=== PATIENT | male | born 1985 | race Caucasian/White ===

== ENCOUNTER 2019-04-08 11:08 | Inpatient (IN) | payer MEDICAID, OTHER ==
[2019-04-08] VITALS (8 sets, daily range): BP systolic 89–101; BP diastolic 51–60; O2SAT 100
[2019-04-08] MEDS: PANTOPRAZOLE 40MG INJ (PROTONIX) (C9113) IV SCH (09:00)
[~2019-04-08 11:08] MED LIST: AMIT25TA PO; CLOB-25 EX; CLON1TAB8 PO; CYCL10TA PO; GABA-845 PO; MOBI4TAB PO; NICO14DI3 TD; OMEP40CA2 PO; PERC5TAB8 PO; SERO1TAB OR; SUBO8MIS SL; TOPA50TA8 PO; WELLTAB40 PO; ZANA4CAP PO
[2019-04-08] MEDS ORDERED: NS 1,000 ML IV SCH (11:18)
[2019-04-08] MEDS ORDERED: NS 1,000 ML IV ONE ×2 (11:30)
[2019-04-08 11:36] LABS: ABG BASE EXCESS -1.2 (-2.0-2.0); ABG HCO3 22.4 MEQ/L (22.0-26.0); ABG O2 SATURATION 99.3 % (95.0-99.0); ABG PARTIAL PRESSURE CO2 34.3 mmHg (35.0-45.0); ABG PARTIAL PRESSURE O2 174.3 mmHg (75.0-100.0); ABG STANDARD HCO3 23.5 MEQ/L (22.0-26.0); ABG TOTAL CO2 23.5 MEQ/L (22.0-29.0); ABG pH (ARTERIAL) 7.433 UNITS (7.350-7.450)
[2019-04-08 11:45] LABS: BASO # 0.1 10^3/uL (0.0-0.2); BASO % 0.4 % (0.0-1.0); EOS # 0.1 10^3/uL (0.0-0.50); EOS % 0.5 % (0.0-3.0); HEMATOCRIT 38.3 % (42.0-52.0); HEMOGLOBIN 13.3 g/dl (13.5-17.5); LYMPH # 1.6 10^3/uL (1.5-4.5); LYMPH % 9.4 % (24.0-44.0); MEAN CORPUSCULAR HEMOGLOBIN 31.3 pg (27.0-33.0); MEAN CORPUSCULAR HGB CONC 34.7 g/dl (32.0-36.5); MEAN CORPUSCULAR VOLUME 90.1 fl (80.0-96.0); MONO # 1.4 10^3/uL (0.0-0.8); MONO % 8.3 % (0.0-5.0); NEUTROPHILS # 13.9 10^3/uL (1.8-7.7); PLATELET COUNT, AUTOMATED 312 10^3/uL (150-450); RED BLOOD COUNT 4.25 10^6/uL (4.30-6.10); WHITE BLOOD COUNT 17.1 10^3/uL (4.0-10.0)
[2019-04-08] MEDS ORDERED: NALOXONE INJ 2 MG/2 ML SYRINGE (J2310) As Ordered ONE (11:47)
[2019-04-08] MEDS ORDERED: PROPOFOL 1,000 MG/100 ML VIAL As Ordered ONE (12:00)
--- NOTE | 2019-04-08 12:00 | REP ---
CHEST, SINGLE VIEW: There is no evidence of acute infiltrate. No pleural effusion is seen. The heart is normal in size. The mediastinal silhouette is unremarkable. The visualized osseous structures are intact. IMPRESSION: No acute pulmonary disease. Electronically Signed by Moy Newell MD 04/08/2019 04:21 P
[2019-04-08] MEDS ORDERED: PROPOFOL 200 MG/20 ML VIAL IV ONE (12:15)
[2019-04-08 12:21] LABS: ACETAMINOPHEN LEVEL < 2.0 UG/ML (10.0-30.0); ALT/SGPT 58 U/L (12-78); BILIRUBIN,DIRECT 0.4 MG/DL (0.0-0.2); BILIRUBIN,TOTAL 1.3 MG/DL (0.2-1.0); BLOOD UREA NITROGEN 22 MG/DL (7-18); CALCIUM LEVEL 9.2 MG/DL (8.5-10.1); CARBON DIOXIDE LEVEL 26 MEQ/L (21-32); CHLORIDE LEVEL 103 MEQ/L (98-107); CPK CREATINE PHOSPHOKINASE 596 U/L (39-308); ETHYL ALCOHOL (ETHANOL) < 0.003 % (0.000-0.010); GLOMERULAR FILTRATION RATE > 60.0 (>60); GLUCOSE, FASTING 88 MG/DL (70-100); POTASSIUM SERUM 3.6 MEQ/L (3.5-5.1); SALICYLATE LEVEL < 1.7 MG/DL (5.0-30.0); SODIUM LEVEL 138 MEQ/L (136-145); TOTAL PROTEIN 7.6 GM/DL (6.4-8.2)
[2019-04-08 12:25] LABS: AMPHETAMINES LEVEL URINE POSITIVE (NEGATIVE); BARBITURATES URINE NEGATIVE (NEGATIVE); BENZODIAZEPINES URINE POSITIVE (NEGATIVE); CANNABINOIDS URINE NEGATIVE (NEGATIVE); COCAINE METABOLITE URINE NEGATIVE (NEGATIVE); METHADONE URINE NEGATIVE (NEGATIVE); OPIATES URINE NEGATIVE (NEGATIVE); PHENCYCLIDINE URINE NEGATIVE (NEGATIVE)
--- NOTE | 2019-04-08 12:25 | REP ---
Portable chest x-ray: Single view. 12:08 p.m. film History: Post intubation. Comparison study: April 08, 2019 11:26 a.m. film. Findings: An endotracheal tube has been passed into the origin of the right mainstem bronchus. This should be withdrawn approximately 4 cm. The lungs are symmetrically aerated and clear. Pleural angles are sharp. Heart is not enlarged. No bony abnormalities seen. Impression: Right mainstem bronchial intubation. Endotracheal tube should be withdrawn approximately 4 cm. Electronically Signed by Alexander Wheat MD 04/08/2019 12:16 P
[2019-04-08 12:26] LABS: OSMOLALITY SERUM 294 MOSM/KG (275-295)
--- NOTE | 2019-04-08 12:55 | REP ---
Head CT without contrast: History: Altered mental status. Comparison study: Comparison CT study March 14, 2016. CT findings: Bone window settings demonstrate an intact bony calvarium. There is no evidence of skull fracture or incidental bony calvarial lesion. The visualized paranasal sinuses appear clear. No intraorbital abnormality is seen. On soft tissue window setting images; the lateral, third, and fourth ventricles are normal in size and position. Newell-white differentiation pattern is normal above and below the tentorium. There are is no evidence of intracranial hemorrhage. No mass, edema, infarction, or midline shift is seen. No extra-axial fluid collection is appreciated. Impression: Negative noncontrast head CT. Electronically Signed by Alexander Wheat MD 04/08/2019 12:46 P
[2019-04-08] MEDS: PROPOFOL 1,000 MG in APPROPRIATE DILUENT 1 EA IV SCH ×3 (13:01→18:21)
--- NOTE | 2019-04-08 13:03 | REP ---
Oral chest x-ray: Single view. 12:44 p.m. History: Tube placement. Comparison study is from 12:08 p.m. on this date. Findings: The endotracheal tube has been withdrawn slightly and now terminates at the level of the tiarra. Lungs remain symmetrically aerated. Pleural angles are sharp. EKG electrodes are seen. No focal infiltrate. Impression: The tip of the endotracheal tube is now at the tiarra. Electronically Signed by Alexander Wheat MD 04/08/2019 12:54 P
[2019-04-08] MEDS ORDERED: SUCCINYLCHOLINE INJ 200 MG/10 ML VIAL (J0330) IV STA (13:11)
[2019-04-08] MEDS ORDERED: XANA2TAB2 PO (13:28)
[2019-04-08] MEDS ORDERED: CLOB05OI TOP (13:28)
[2019-04-08] MEDS ORDERED: SERO200T PO (13:28)
[2019-04-08] MEDS ORDERED: SUBO8MIS SL (13:28)
[2019-04-08] MEDS ORDERED: MIDAZOLAM INJ 2 MG/2 ML VIAL (J2250) IV PRN (13:45)
[2019-04-08] MEDS ORDERED: MORPHINE 4 MG/ML 1ML VIAL/SYRINGE (J2270) IV PRN (13:45)
[2019-04-08] MEDS: KCL 20MEQ IN D5/0.45NS 1000ML 1,000 ML IV SCH ×2 (14:14→21:05)
[2019-04-08] MEDS: HEPARIN SOD (PORCINE) 5000 UNITS/ML VIAL SC SCH ×2 (14:16→21:05)
[2019-04-08] MEDS ORDERED: SUCCINYLCHOLINE 100 MG/5 ML SYRINGE (J0330) ONE (15:09)
--- NOTE | 2019-04-08 18:14 | HPE ---
DATE OF ADMISSION: 04/08/2019 ATTENDING PHYSICIAN: Dr. Boo. REASON FOR ADMISSION: Suspected drug overdose with respiratory failure. HISTORY OF PRESENT ILLNESS: Patient is a 33-year-old male who presents into the emergency department via [facility] ([facility]) for a suspected overdose. My first contact with the patient was in the emergency department after the patient had been sedated and intubated. As such, the majority of the history of present illness (HPI) does come from the medical record and EMS run report. EMS was called to the patient's home after a family member stated the patient took an unknown amount of pills, thought to be anywhere from 10 to 1/2 a bottle worth of Seroquel, with possible Suboxone and Xanax and perhaps Klonopin in an attempt to harm himself. Upon arrival, EMS found the patient to be conscious and responsive to verbal stimuli. They did note some dried blood from multiple superficial lacerations on the patient's head. Patient's family member reported that the patient did vomit. EMS also stated that an unknown quantity of pills were found dissolved in the toilet near where the patient was found. Patient was subsequently transported to the emergency department where, upon arrival, patient was found to have a pulse of 152, a respiratory rate of 16, oxygen saturation of 95 on room air. Given patient's respiratory decline, decision was made to intubate the patient and place him on a ventilator. Shank Tapper was contacted for intensive care unit (ICU) admission and further management. PAST MEDICAL HISTORY: Past medical history obtained from the medical record given that patient remains sedated. Patient does have a history of headaches. No known cardiac, respiratory, gastrointestinal (GI), genitourinary (), endocrine problems. Medical record also indicates patient does have a history of chronic back pain after a fall sustained on 03/21/2019. Patient also has a history of hepatitis C secondary to intravenous (IV) heroin use. Rheumatologic disease: Patient does have a history of psoriatic arthritis. SURGICAL HISTORY: 1. Tonsillectomy. 2. Adenoidectomy. PSYCHIATRIC HISTORY: Positive for schizophrenia, anxiety, depression, oppositional defiant disorder. Patient does have a history of major depression/bipolar disorder. He uses to see Dr. Carrasco. SOCIAL HISTORY: Social history unable to be obtained given patient's current condition. Medical record indicates that the patient is a current everyday smoker and has been so for a number of years. History of IV heroin use as mentioned above. FAMILY HISTORY: Unable to be obtained given patient's current condition. VITAL SIGNS: Temperature is 99.1 degrees Fahrenheit, pulse is 90 beats per minute, respiratory rate is 14, blood pressure is 102/52, with a mean arterial pressure of 69. Pulse oximetry: Patient is saturating at 98% on a ventilator with 40 of FiO2. PHYSICAL EXAMINATION: GENERAL: Patient is a well-developed male lying on emergency room stretcher. He is intubated with an orogastric (OG) tube in place. Propofol drip is running for sedation. HEENT: There are numerous small superficial lacerations on the patient's right scalp in the parietal region. None of these appear to be deep or require further intervention at this time. Patient does not have any evidence of facial injury. Pupils are constricted equally bilaterally. His sclerae are clear. NECK: Patient's trachea appears midline. CARDIAC: Regular rate and rhythm. Normal S1, S2 with no apparent murmurs. PULMONARY: Lungs are clear bilaterally. Does demonstrate symmetric expansion. No adventitial breath sounds. EXTREMITIES: Patient does have palpable 2+ radial and posterior tibial pulses bilaterally. Some scars are noted on the patient's left antecubital fossa. Tattoos also present on patient's extremities. He does not have any lower extremity edema or obvious injury. ABDOMEN: Soft, nontender, nondistended. Bowel sounds are present throughout. No hepatosplenomegaly or masses appreciated. NEUROLOGIC: Patient is sedated at this time. LABORATORY STUDIES: Hematology: Patient does have an elevated white count of 17.1, an hemoglobin and hematocrit (H and H) of 13.3/38.3, platelets are 312. Chemistry: Sodium is 138, potassium is 3.6, chloride at 103, carbon dioxide 26, BUN of 22, creatinine of 1.0, calcium of 9.2. Patient has a slightly elevated AST of 48 and an ALT of 58. Total creatinine kinase is elevated at 596. Patient's blood gas demonstrates a pH of 7.43, pCO2 of 34.3, pO2 of 174.3 and a bicarbonate of 22.4. TOXICOLOGY: Patient is positive for urine amphetamines and benzodiazepines. IMAGING STUDIES: Chest x-ray performed upon presentation does not demonstrate any acute pulmonary disease. Following intubation, portable chest x-ray did demonstrate that the patient did have a right main stem bronchial intubation. The endotracheal tube was withdrawn and repeat x-ray did confirm endotracheal tube placement at the tiarra. Head CT was also ordered to rule out any trauma and was negative for any acute abnormalities. IMPRESSION: 1. Respiratory failure secondary to overdose of unknown quantity of medication. 2. Question of suicide attempt. 3. Superficial scalp lacerations on the right. PLAN: The patient will be admitted to the ICU and remains under supportive ventilation while the unknown medications in patient's system wear off. He will continue to be monitored for any further sequelae of his overdose. 2. Cardiac: Continue to monitor patient's rhythm with particular attention to development of QT prolongation. 3. Respiratory: Patient is to remain ventilated with propofol sedation. Versed will be given as needed. The usual ventilation care bundle will also be ordered. Ventilation mode of PRVC at a rate of 16, tidal volume of 380, FiO2 of 50, and PEEP of 5. Plan for daily sedation vacations. Repeat arterial blood gas (ABG) to be performed at 1800 and daily thereafter. Daily chest x-ray as well will be performed. 4. Nephrology: Continue to monitor strict intake and output (I and O). Patient will continue with his Hahn until extubated. Patient is currently receiving IV fluids with supplemental potassium. D5 half normal saline at 150 mL per hour. Daily critical care profile labs will be ordered. 5. GI: Patient will be given GI prophylaxis with 40 mg of Protonix. Patient is nothing by mouth, does have an OG tube, which will be place on low intermittent suction. 6. Hematology: Patient is given heparin for deep venous thrombosis (DVT) prophylaxis. 7. Neurological: Patient remains sedated using propofol drip. He will be given 2 mg of IV morphine as needed for pain. 8. Psychiatric: Question of suspected suicide attempt. Plan for psychiatric consult following medical stabilization. CODE STATUS: Patient is a FULL CODE. I was physically present for the entire encounter. Independent exam performer. I agree with the above outlined exam and plan. [facility] HOSPITALNatalia
[2019-04-08 18:21] LABS: ABG BASE EXCESS -1.2 (-2.0-2.0); ABG HCO3 23.7 MEQ/L (22.0-26.0); ABG O2 SATURATION 99.1 % (95.0-99.0); ABG PARTIAL PRESSURE CO2 40.5 mmHg (35.0-45.0); ABG STANDARD HCO3 23.5 MEQ/L (22.0-26.0); ABG pH (ARTERIAL) 7.386 UNITS (7.350-7.450)
[2019-04-08] MEDS ORDERED: cefTRIAXone SOD 1 GM in D5W MINI-BAG PLUS 50 ML IV SCH (19:00)
[2019-04-08] MEDS: IPRATROPIUM 0.5MG/ALBUTEROL 2.5MG INH SOL UD 3ML (DUONEB)(J7620) NEB SCH (19:26)
[2019-04-08] MEDS: CHLORHEXIDINE GLUCONATE 0.12 % 15ML UDC (PERIDEX ORAL RINSE) MT SCH (21:04)
[2019-04-09] VITALS (14 sets, daily range): BP systolic 93–123; BP diastolic 53–73; O2SAT 100
[2019-04-09] MEDS: IPRATROPIUM 0.5MG/ALBUTEROL 2.5MG INH SOL UD 3ML (DUONEB)(J7620) NEB SCH ×6 (00:10→20:09)
[2019-04-09] MEDS: PROPOFOL 1,000 MG in APPROPRIATE DILUENT 1 EA IV SCH (03:59)
[2019-04-09] MEDS: KCL 20MEQ IN D5/0.45NS 1000ML 1,000 ML IV SCH ×4 (03:59→23:40)
[2019-04-09 05:13] LABS: BASO % 0.3 % (0.0-1.0); EOS # 0.2 10^3/uL (0.0-0.50); EOS % 2.1 % (0.0-3.0); HEMATOCRIT 34.8 % (42.0-52.0); HEMOGLOBIN 11.5 g/dl (13.5-17.5); LYMPH # 1.4 10^3/uL (1.5-4.5); LYMPH % 14.3 % (24.0-44.0); MEAN CORPUSCULAR VOLUME 93.8 fl (80.0-96.0); MONO # 1.1 10^3/uL (0.0-0.8); MONO % 11.2 % (0.0-5.0); NEUTROPHILS % 71.8 % (36.0-66.0); PLATELET COUNT, AUTOMATED 253 10^3/uL (150-450); RED BLOOD COUNT 3.71 10^6/uL (4.30-6.10); WHITE BLOOD COUNT 9.7 10^3/uL (4.0-10.0)
[2019-04-09] MEDS: HEPARIN SOD (PORCINE) 5000 UNITS/ML VIAL SC SCH ×3 (05:16→14:10)
[2019-04-09 05:37] LABS: ALBUMIN 3.1 GM/DL (3.2-5.2); ALT/SGPT 46 U/L (12-78); BILIRUBIN,TOTAL 0.7 MG/DL (0.2-1.0); BLOOD UREA NITROGEN 12 MG/DL (7-18); CALCIUM LEVEL 7.6 MG/DL (8.5-10.1); CARBON DIOXIDE LEVEL 26 MEQ/L (21-32); CHLORIDE LEVEL 112 MEQ/L (98-107); CHOLESTEROL LEVEL 118 MG/DL (< 200); CPK CREATINE PHOSPHOKINASE 225 U/L (39-308); CREATININE FOR GFR 0.91 MG/DL (0.70-1.30); GLOMERULAR FILTRATION RATE > 60.0 (>60); GLUCOSE, FASTING 115 MG/DL (70-100); LDH LACTATE DEHYDROGENASE 77 U/L (87-241); PHOSPHORUS LEVEL 3.3 MG/DL (2.5-4.9); POTASSIUM SERUM 3.8 MEQ/L (3.5-5.1); SODIUM LEVEL 142 MEQ/L (136-145); TOTAL PROTEIN 6.3 GM/DL (6.4-8.2); TRIGLYCERIDES LEVEL 30 MG/DL (<150)
[2019-04-09 05:46] LABS: ABG BASE EXCESS -0.8 (-2.0-2.0); ABG HCO3 24.4 MEQ/L (22.0-26.0); ABG O2 SATURATION 98.1 % (95.0-99.0); ABG PARTIAL PRESSURE CO2 42.6 mmHg (35.0-45.0); ABG PARTIAL PRESSURE O2 107.2 mmHg (75.0-100.0); ABG STANDARD HCO3 23.8 MEQ/L (22.0-26.0); ABG TOTAL CO2 25.7 MEQ/L (22.0-29.0); ABG pH (ARTERIAL) 7.376 UNITS (7.350-7.450)
--- NOTE | 2019-04-09 05:49 | ECGEPIP ---
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
--- NOTE | 2019-04-09 05:54 | ECGEPIP ---
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
[2019-04-09] MEDS: CHLORHEXIDINE GLUCONATE 0.12 % 15ML UDC (PERIDEX ORAL RINSE) MT SCH (09:03)
[2019-04-09] MEDS: PANTOPRAZOLE 40MG INJ (PROTONIX) (C9113) IV SCH (09:03)
--- NOTE | 2019-04-09 09:37 | REP ---
CHEST, PORTABLE: AP portable view of the chest was performed and compared to prior study of 04/08/2019. Endotracheal tube is seen with the tip between the leve of the clavicles and the tiarra. Nasogastric tube is seen. The sideport appears to be in the region of the gastroesophageal junction with the distal tip in the stomach. The lungs appear unchanged with no infiltrate. The heart and mediastinum are unremarkable and unchanged. Electronically Signed by Moy Newell MD 04/09/2019 04:28 P
--- NOTE | 2019-04-09 10:12 | CCN ---
DATE: 04/09/2019 START TIME: 905 STOP TIME: 953 I again attended Julio C Meza here in the intensive care unit (ICU). The patient has been examined and his chart is reviewed. During the night, he was able to tolerate a wean in his propofol but then became somewhat agitated. He is on sedation vacation this morning, but is still quite sedate. Maximum temperature (t-max) overnight 99.4, blood pressure 90 to the low 100s, heart rate generally in the 70s to 80s with a sinus mechanism, respiratory rate 16 to 18 without accessory muscle use. Input and output midnight to midnight 336 mL in with 1975 mL out. Most recent laboratories showed a white blood cell count 9.7, hemoglobin 11.5, platelet count 253,000, 71.8% segmented neutrophils, no bands. Sodium 142, potassium 3.8, chloride 102, CO2 of 26, BUN 12, creatinine 0.91, glucose 115. Most recent arterial blood gas done on a pressure-like regulated volume control (PRVC) , rate is 16, tidal volume 400, PEEP of 5, FiO2 of 30% has a pH of 7.376, PCO2 of 42.6, PO2 of 107.2. Chest x-ray done this morning shows no evidence of infiltrate. Lines and tubes in good position. No pneumothorax. PHYSICAL EXAMINATION: He is sedate. Pupils do react, sclerae clear. There is mild intermittent disconjugate gaze that does clear. Membranes are moist. Trachea is in the midline. Chest is equally bilaterally expanded. Percussion is normal. Tactile fremitus palpable. No focal wheeze, rhonchus, rales. Cardiac exam is regular with no gallop. Peripheral pulses palpable. No edema. No obvious murmur. Abdomen is soft with active bowel sounds. No convincing organomegaly or masses. Extremities are without cyanosis or clubbing. Neurologically, he is sedate but is beginning to at least flutter his eyes to verbal and noxious stimuli. Most pressing problems requiring my presence at the bedside are: 1. Respiratory failure secondary to polypharmacy drug overdose. 2. Suicidal gesture. 3. Long-standing history of substance abuse. At this point, we will lighten his sedation. My hope is that we will be able to achieve extubation, but again we are unaware of what actual substances he took, whether they are sustained release or not. When he is finally able to be extubated, clearly he will need formal psychiatry evaluation since all indications point to this being a suicidal gesture. We will continue ulcer and deep vein thrombosis (DVT) prophylaxis. If he is not able to be extubated today then we will begin enteral feeds. No evidence at this point of any other progressive issues. He was empirically placed on antibiotics yesterday for a marginal white blood cell count and his history of vomiting. We will reassess this on a day by day basis to see if we can discontinue it his antimicrobials, we would certainly like to do that at the earliest convenience. In view of the above, he does remain critically ill. I left the bedside at 0954 hours. 48 minutes of critical care was delivered at the bedside, not including procedures. CASSIA
--- NOTE | 2019-04-09 18:07 | IPNPDOC ---
Subjective Date Seen The patient was seen on 04/09/19. Subjective Chief Complaint/HPI The patient was seen in the ICU. He is arousable, easily waken up. However, he is currently very tired,and he has difficulty having a conversation with me. He was extubated today. He denies pain. General: Reports: ROS Unobtainable Objective Physical Examination General Exam: Positive: Alert ENT Exam: Positive: Atraumatic, Mucous membr. moist/pink Neck Exam: Positive: Supple Chest Exam: Positive: Clear to auscultation, Normal air movement Heart Exam: Positive: Rate Normal Telemetry: Positive: No significant arrhythmia Abdomen Exam: Positive: Normal bowel sounds Extremity Exam: Positive: Other (no edema) Skin Exam: Positive: Nl turgor and temperature Neuro Exam: Positive: Normal Speech Psych Exam: Positive: Mood NL Assessment /Plan Problems (1) Drug overdose Status: Acute (2) Respiratory failure requiring intubation Problem Text: # Not able to protect airway - The patient was not able to protect the airway, and he was intubated. He was extubated without any complications today. Currently, the patient is awake, but looking very tired. He denies pain. - Will continue the non-rebreather mask to help breathing. # Medication overdose, suicidal ideation? - UTox shows amphetamine and benzo, not clear what was overdosed. - The patient was just extubated today. Will be seen by inpatient psych tomorrow. - Continue IV hydration. # Rhabdomyolitis - He had an elevated CK level initially. Improving on IV hydration. - Continue IV hydration. # DVT ppx - heparin Plan/VTE VTE Prophylaxis Ordered?: Yes VS, I&O, 24H, [facility] Vital Signs/I&O Vital Signs Date Time Temp Pulse Resp B/P (MAP) Pulse Ox O2 Delivery O2 Flow Rate FiO2 04/09/19 16:00 98.6 114 18 121/65 (83) 94 04/09/19 14:00 10.0 40 04/08/19 18:21 Ventilator I&O- Last 24 Hours up to 6 AM 04/09/19 06:00 Intake Total 4236 ml Output Total 2450 ml Balance 1786 ml Laboratory Data 24H LABS Laboratory Tests 2 04/08/19 18:02: Blood Gas Bicarbonate Standard 23.5, Arterial Blood pH 7.386, Arterial Blood Partial Pressure CO2 40.5, Arterial Blood Partial Pressure O2 151.0H, Arterial Blood Total CO2 25.0, Arterial Blood HCO3 23.7, Arterial Blood Base Excess -1.2, Arterial Blood Oxygen Saturation 99.1H 04/09/19 04:38: Immature Granulocyte % (Auto) 0.3, White Blood Count 9.7, Red Blood Count 3.71L, Hemoglobin 11.5L, Hematocrit 34.8L, Mean Corpuscular Volume 93.8, Mean Corpuscular Hemoglobin 31.0, Mean Corpuscular Hemoglobin Concent 33.0, Red Cell Distribution Width 12.8, Platelet Count 253, Neutrophils (%) (Auto) 71.8H, Lymphocytes (%) (Auto) 14.3L, Monocytes (%) (Auto) 11.2H, Eosinophils (%) (Auto) 2.1, Basophils (%) (Auto) 0.3, Neutrophils # (Auto) 7.0, Lymphocytes # (Auto) 1.4L, Monocytes # (Auto) 1.1H, Eosinophils # (Auto) 0.2, Basophils # (Auto) 0.0, Nucleated Red Blood Cells % (auto) 0.0, Anion Gap 4L, Glomerular Filtration Rate > 60.0, Blood Urea Nitrogen 12, Creatinine 0.91, Sodium Level 142, Potassium Level 3.8, Chloride Level 112H, Carbon Dioxide Level 26, Calcium Level 7.6#L, Phosphorus Level 3.3, Aspartate Amino Transf (AST/SGOT) 35, Alanine Aminotransferase (ALT/SGPT) 46, Lactate Dehydrogenase 77L, Total Creatine Kinase 225, Alkaline Phosphatase 71, Total Bilirubin 0.7, Triglycerides Level 30, Cholesterol Level 118, Total Protein 6.3L, Albumin 3.1#L, Albumin/Globulin Ratio 0.97L 04/09/19 05:33: Blood Gas Bicarbonate Standard 23.8, Arterial Blood pH 7.376, Arterial Blood Partial Pressure CO2 42.6, Arterial Blood Partial Pressure O2 107.2H, Arterial Blood Total CO2 25.7, Arterial Blood HCO3 24.4, Arterial Blood Base Excess -0.8, Arterial Blood Oxygen Saturation 98.1 CBC/BMP Laboratory Tests 04/09/19 04:38 Red Blood Count 3.71 L, Mean Corpuscular Volume 93.8, Mean Corpuscular Hemoglobin 31.0, Mean Corpuscular Hemoglobin Concent 33.0, Red Cell Distribution Width 12.8, Neutrophils (%) (Auto) 71.8 H, Lymphocytes (%) (Auto) 14.3 L, Monocytes (%) (Auto) 11.2 H, Eosinophils (%) (Auto) 2.1, Basophils (%) (Auto) 0.3, Neutrophils # (Auto) 7.0, Lymphocytes # (Auto) 1.4 L, Monocytes # (Auto) 1.1 H, Eosinophils # (Auto) 0.2, Basophils # (Auto) 0.0, Calcium Level 7.6 #L, Phosphorus Level 3.3, Aspartate Amino Transf (AST/SGOT) 35, Alanine Aminotransferase (ALT/SGPT) 46, Lactate Dehydrogenase 77 L, Total Creatine Kinase 225, Alkaline Phosphatase 71, Total Bilirubin 0.7, Triglycerides Level 30, Cholesterol Level 118, Total Protein 6.3 L, Albumin 3.1 #L ISHA MAURICIO MD Apr 09, 2019 18:07
[2019-04-09] MEDS: ACETAMINOPHEN 500 MG TAB PO PRN (20:06)
[2019-04-10] VITALS: BP 105/65
[2019-04-10 04:00] VITALS: BP 105/70
[2019-04-10] MEDS: IPRATROPIUM 0.5MG/ALBUTEROL 2.5MG INH SOL UD 3ML (DUONEB)(J7620) NEB SCH ×5 (04:00→16:00)
[2019-04-10] MEDS: KCL 20MEQ IN D5/0.45NS 1000ML 1,000 ML IV SCH (05:25)
[2019-04-10] MEDS: HEPARIN SOD (PORCINE) 5000 UNITS/ML VIAL SC SCH ×2 (05:26→13:44)
[2019-04-10 05:32] LABS: BASO % 0.4 % (0.0-1.0); EOS # 0.2 10^3/uL (0.0-0.50); EOS % 2.1 % (0.0-3.0); HEMATOCRIT 37.8 % (42.0-52.0); HEMOGLOBIN 12.3 g/dl (13.5-17.5); LYMPH # 1.8 10^3/uL (1.5-4.5); LYMPH % 17.4 % (24.0-44.0); MEAN CORPUSCULAR HEMOGLOBIN 30.5 pg (27.0-33.0); MEAN CORPUSCULAR HGB CONC 32.5 g/dl (32.0-36.5); MEAN CORPUSCULAR VOLUME 93.8 fl (80.0-96.0); MONO # 1.3 10^3/uL (0.0-0.8); MONO % 12.5 % (0.0-5.0); NEUTROPHILS # 6.8 10^3/uL (1.8-7.7); NEUTROPHILS % 67.3 % (36.0-66.0); PLATELET COUNT, AUTOMATED 249 10^3/uL (150-450); RED BLOOD COUNT 4.03 10^6/uL (4.30-6.10); WHITE BLOOD COUNT 10.1 10^3/uL (4.0-10.0)
[2019-04-10 05:58] LABS: ALBUMIN 2.8 GM/DL (3.2-5.2); ALT/SGPT 42 U/L (12-78); BILIRUBIN,TOTAL 0.7 MG/DL (0.2-1.0); BLOOD UREA NITROGEN 9 MG/DL (7-18); CALCIUM LEVEL 8.1 MG/DL (8.5-10.1); CARBON DIOXIDE LEVEL 27 MEQ/L (21-32); CHLORIDE LEVEL 110 MEQ/L (98-107); CHOLESTEROL LEVEL 130 MG/DL (< 200); CPK CREATINE PHOSPHOKINASE 206 U/L (39-308); CREATININE FOR GFR 0.87 MG/DL (0.70-1.30); GLOMERULAR FILTRATION RATE > 60.0 (>60); GLUCOSE, FASTING 106 MG/DL (70-100); LDH LACTATE DEHYDROGENASE 83 U/L (87-241); PHOSPHORUS LEVEL 3.8 MG/DL (2.5-4.9); SODIUM LEVEL 140 MEQ/L (136-145); TOTAL PROTEIN 6.3 GM/DL (6.4-8.2); TRIGLYCERIDES LEVEL 34 MG/DL (<150)
--- NOTE | 2019-04-10 07:29 | REP ---
Portable chest, 08:15 p.m., single AP view with the patient sitting: Comparison is from 07:16 a.m. earlier this same date. The endotracheal tube and nasogastric tube have been removed. Lung warner are clear. Cardiac size is normal. The katharine, mediastinum, skeletal structures are unremarkable. Impression: Negative portable chest. The endotracheal tube and nasogastric tube have been removed. Electronically Signed by Moy Barraza MD 04/10/2019 07:21 A
--- NOTE | 2019-04-10 07:30 | REP ---
Portable chest, 06:42 a.m., single AP view with the patient upright: Comparison is 08:15 p.m. 04/09/2019. The lung warner are clear. The cardiac size is normal. The katharine, mediastinum, and skeletal structures are unremarkable. Impression: Negative portable chest. There is no interval change. Electronically Signed by Moy Barraza MD 04/10/2019 07:22 A
[2019-04-10 07:35] VITALS: BP 106/69
[2019-04-10] MEDS ORDERED: PANTOPRAZOLE 40MG TAB (PROTONIX) PO SCH (09:00)
[2019-04-10] MEDS ORDERED: ALPRAZolam 0.5 MG TAB PO PRN (12:45)
[2019-04-10] MEDS: ACETAMINOPHEN 500 MG TAB PO PRN (13:50)
[2019-04-10] MEDS ORDERED: NICOTINE 21MG/24HR 1 EA TRANSDERMAL TD SCH (15:00)
[2019-04-10 16:00] VITALS: BP 113/61
--- NOTE | 2019-04-10 16:02 | DS.PDOC ---
Discharge Summary General Date of Admission Apr 08, 2019 at 13:40 Date of Discharge 04/10/2019 Discharge Summary PROCEDURES PERFORMED DURING STAY: [None]. ADMITTING DIAGNOSES: 1. Chemical overdose DISCHARGE DIAGNOSES: 1. Unable to protect the airway, overdose COMPLICATIONS/CHIEF COMPLAINT: Drug Overdose Resp Failure Requiring Intubation. HISTORY OF PRESENT ILLNESS: Patient is a 33-year-old male who presents into the emergency department via Emergency Medical Service (EMS) for a suspected overdose. My first contact with the patient was in the emergency department after the patient had been sedated and intubated. As such, the majority of the history of present illness (HPI) does come from the medical record and EMS run report. EMS was called to the patient's home after a family member stated the patient took an unknown amount of pills, thought to be anywhere from 10 to 1/2 a bottle worth of Seroquel, with possible Suboxone and Xanax and perhaps Klonopin in an attempt to harm himself. Upon arrival, EMS found the patient to be conscious and responsive to verbal stimuli. They did note some dried blood frommultiple superficial lacerations on the patient's head. Patient's family member reported that the patient did vomit. EMS also stated that an unknown quantity of pills were found dissolved in the toilet near where the patient was found. Patient was subsequently transported to the emergency department where, upon arrival, patient was found to have a pulse of 152, a respiratory rate of 16, oxygen saturation of 95 on room air. Given patient's respiratory decline, decision was made to intubate the patient and place him on a ventilator. Ticket Speculator was contacted for intensive care unit (ICU) admission and further management. HOSPITAL COURSE: The patient was intubated because he was not able to protect airway. The patient was not able to protect the airway, and he was intubated. He was extubated without any complications yesterday. Currently, the patient is awake, but looking very tired. He denies pain. Most likely, he overdosed medications or chemicals. UTox shows amphetamine and benzo, not clear what was overdosed. IV hydration was continued. He was also fou nd to have rhabdomyolitis with an elevated CK level initially. Improved on IV hydration. Psychiatry was consulted, and the patient was deemed not safe to be discharged, given overdose of medication. The patient will be discharged to inpatient psychiatry unit. DISCHARGE MEDICATIONS: Please see below. ALLERGIES: Please see below. PHYSICAL EXAMINATION ON DISCHARGE: VITAL SIGNS: Please see below. ENT Exam: Positive: Atraumatic, Mucous membr. moist/pink Neck Exam: Positive: Supple Chest Exam: Positive: Clear to auscultation, Normal air movement Heart Exam: Positive: Rate Normal Telemetry: Positive: No significant arrhythmia Abdomen Exam: Positive: Normal bowel sounds Extremity Exam: Positive: Other (no edema) Skin Exam: Positive: Nl turgor and temperature Neuro Exam: Positive: Normal Speech Psych Exam: Positive: Mood NL Vital Signs/I&Os Vital Signs Date Time Temp Pulse Resp B/P (MAP) Pulse Ox O2 Delivery O2 Flow Rate FiO2 04/10/19 07:35 97.6 82 16 106/69 (81) 94 04/09/19 14:00 10.0 40 04/08/19 18:21 Ventilator I&O- Last 24 Hours up to 6 AM 04/10/19 05:59 Intake Total 3114 ml Output Total 3200 ml Balance -86 ml Laboratory Data Labs 24H Laboratory Tests 2 04/10/19 05:08: Immature Granulocyte % (Auto) 0.3, White Blood Count 10.1H, Red Blood Count 4.03L, Hemoglobin 12.3L, Hematocrit 37.8L, Mean Corpuscular Volume 93.8, Mean Corpuscular Hemoglobin 30.5, Mean Corpuscular Hemoglobin Concent 32.5, Red Cell Distribution Width 12.7, Platelet Count 249, Neutrophils (%) (Auto) 67.3H, Lymphocytes (%) (Auto) 17.4L, Monocytes (%) (Auto) 12.5H, Eosinophils (%) (Auto) 2.1, Basophils (%) (Auto) 0.4, Neutrophils # (Auto) 6.8, Lymphocytes # (Auto) 1.8, Monocytes # (Auto) 1.3H, Eosinophils # (Auto) 0.2, Basophils # (Auto) 0.0, Nucleated Red Blood Cells % (auto) 0.0, Anion Gap 3L, Glomerular Filtration Rate > 60.0, Blood Urea Nitrogen 9, Creatinine 0.87, Sodium Level 140, Potassium Level 4.0, Chloride Level 110H, Carbon Dioxide Level 27, Calcium Level 8.1L, Phosphorus Level 3.8, Aspartate Amino Transf (AST/SGOT) 30, Alanine Aminotransferase (ALT/SGPT) 42, Lactate Dehydrogenase 83L, Total Creatine Kinase 206, Alkaline Phosphatase 75, Total Bilirubin 0.7, Triglycerides Level 34, Cholesterol Level 130, Total Protein 6.3L, Albumin 2.8L, Albumin/Globulin Ratio 0.80L 04/10/19 08:43: Urine Color YELLOW, Urine Appearance CLEAR, Urine pH 5.0, Urine Specific [place] 1.010, Urine Protein NEGATIVE, Urine Glucose (UA) NEGATIVE, Urine Ketones NEGATIVE, Urine Blood NEGATIVE, Urine Nitrite NEGATIVE, Urine Bilirubin NEGATIVE, Urine Urobilinogen 0.2, Urine Leukocyte Esterase NEGATIVE, Urine WBC (Auto) 4H, Urine RBC (Auto) 0, Urine Hyaline Casts (Auto) 0, Urine Bacteria (Auto) NEGATIVE, Urine Squamous Epithelial Cells 0, Urine Mucus (Auto) SMALL, Urine Sperm (Auto) CBC/BMP Laboratory Tests 04/10/19 05:08 Red Blood Count 4.03 L, Mean Corpuscular Volume 93.8, Mean Corpuscular Hemoglobin 30.5, Mean Corpuscular Hemoglobin Concent 32.5, Red Cell Distribution Width 12.7, Neutrophils (%) (Auto) 67.3 H, Lymphocytes (%) (Auto) 17.4 L, Monocytes (%) (Auto) 12.5 H, Eosinophils (%) (Auto) 2.1, Basophils (%) (Auto) 0.4, Neutrophils # (Auto) 6.8, Lymphocytes # (Auto) 1.8, Monocytes # (Auto) 1.3 H, Eosinophils # (Auto) 0.2, Basophils # (Auto) 0.0, Calcium Level 8.1 L, Phosphorus Level 3.8, Aspartate Amino Transf (AST/SGOT) 30, Alanine Aminotransferase (ALT/SGPT) 42, Lactate Dehydrogenase 83 L, Total Creatine Kinase 206, Alkaline Phosphatase 75, Total Bilirubin 0.7, Triglycerides Level 34, Cholesterol Level 130, Total Protein 6.3 L, Albumin 2.8 L Microbiology Microbiology 04/09/19 Blood Culture, Received Pending 04/09/19 Blood Culture, Received Pending Discharge Medications Scheduled Quetiapine Fumarate (Seroquel) 200 Mg Tablet, 200 MG PO QHS, (Reported) Allergies Coded Allergies: No Known Allergies (Verified , 04/07/11) ISHA MAURICIO MD Apr 10, 2019 16:02
[2019-04-10] MEDS ORDERED: QUEtiapine FUMARATE 200 MG TAB PO SCH (21:00)
== END 2019-04-10 18:40 | DRG 812 ==
LOC: M ED 11:08 → EDBD 11:08 → M ED INP 13:40 → M ICU 15:29
PROVIDERS: ADMIT Internal Medicine Pulmonary Disease; ATTEND Internal Medicine
PROC: 5A1935Z Respiratory Ventilation, Less than 24 Consecutive Hours (ICD-10-PCS; principal; 2019-04-08)
PROC: 0BH17EZ Insertion of Endotracheal Airway into Trachea, Via Natural or Artificial Opening (ICD-10-PCS; 2019-04-08)
DX: T43.592A Poisoning by other antipsychotics and neuroleptics, intentional self-harm, initial encounter (principal); J96.90 Respiratory failure, unspecified, unspecified whether with hypoxia or hypercapnia; M62.82 Rhabdomyolysis; F20.9 Schizophrenia, unspecified; F31.9 Bipolar disorder, unspecified; S01.01XA Laceration without foreign body of scalp, initial encounter; X58.XXXA Exposure to other specified factors, initial encounter; Y92.009 Unspecified place in unspecified non-institutional (private) residence as the place of occurrence of the external cause; F41.9 Anxiety disorder, unspecified; F91.3 Oppositional defiant disorder; B19.20 Unspecified viral hepatitis C without hepatic coma

== ENCOUNTER 2019-04-10 17:18 | Inpatient (IN) | payer MEDICAID ==
[~2019-04-10] VITALS: Ht 167.6 cm; Wt 63.9 kg
[~2019-04-10 17:18] MED LIST changes: +CLOB05OI TOP; +SERO200T PO; +XANA2TAB2 PO
[2019-04-10] MEDS ORDERED: MOM 30ML SUSPENSION UDC PO PRN (17:45)
[2019-04-10] MEDS ORDERED: MAALOX 30 ML SUSP *UDC PO PRN (17:45)
[2019-04-10] MEDS ORDERED: traZODone 50 MG TAB PO PRN (17:45)
[2019-04-10] MEDS ORDERED: ACETAMINOPHEN TAB 650MG DOSE (2X325MG) PO PRN (17:45)
[2019-04-10 18:59] VITALS: BP 126/66
[2019-04-10] MEDS: ALPRAZolam 0.5 MG TAB PO SCH (22:38)
[2019-04-10] MEDS: CLOBETASOL PROP 0.05% OINT 30 GM TOP SCH (22:39)
[2019-04-10] MEDS: BUPRENORPHINE/NALOXONE 8-2MG SUBLINGUAL TABLET(SUBOXONE) SL SCH (22:39)
[2019-04-11 06:48] VITALS: BP 134/76
[2019-04-11] MEDS: ALPRAZolam 0.5 MG TAB PO SCH ×2 (08:25→20:20)
[2019-04-11] MEDS: BUPRENORPHINE/NALOXONE 8-2MG SUBLINGUAL TABLET(SUBOXONE) SL SCH ×2 (08:25→20:20)
[2019-04-11] MEDS: CLOBETASOL PROP 0.05% OINT 30 GM TOP SCH ×2 (08:26→20:20)
[2019-04-11] MEDS: NICOTINE 21MG/24HR 1 EA TRANSDERMAL TD SCH (11:35)
--- NOTE | 2019-04-11 14:51 | HPEPDOC ---
General Date of Admission Apr 10, 2019 at 18:43 Date of Service: Apr 11, 2019 Chief Complaint The patient is a 33-year-old male admitted with a reason for visit of Risk For Suicide. History of Present Illness Patient is a 33-year-old male who initially presented into the emergency department via Emergency Medical Service (EMS) for a suspected overdose. The patient was intubated in the ER for not being able to protect his airway. EMS was called to the patient's home after a family member stated the patient took an unknown amount of pills, thought to be anywhere from 10 to 1/2 a bottle worth of seroquel, with possible Suboxone and Xanax and perhaps Klonopin in an attempt to harm himself. Upon arrival, EMS found the patient to be conscious and responsive to verbal stimuli. They did note some dried blood from multiple superficial lacerations on the patient's head. Patient's family member reported that the patient did vomit. EMS also stated that an unknown quantity of pills were found dissolved in the toilet near where the patient was found. Patient was subsequently transported to the emergency department where, upon arrival, patient was found to have a pulse of 152, a respiratory rate of 16, oxygen saturation of 95 on room air. Given patient's respiratory decline, decision was made to intubate the patient and place him on a ventilator. Developer Architect was contacted for intensive care unit (ICU) admission and further management. The patient was successfully extubated without any complications two days before transfer to the inpatient psychiatry. Most likely, he overdosed medications or chemicals. UTox shows amphetamine and benzo, not clear what was overdosed. IV hydration was continued. He was also found to have rhabdomyolitis with an elevated CK level initially. Improved on IV hydration. Psychiatry was consulted, and the patient was deemed not safe to be discharged, given overdose of medication with a high risk of committing suicide. The patient was discharged to inpatient psychiatry unit. Currently, the patient denies any physical or medical complaints. Home Medications Scheduled Quetiapine Fumarate (Seroquel) 200 Mg Tablet, 200 MG PO QHS, (Reported) Allergies Coded Allergies: No Known Allergies (Verified , 04/07/11) Past Medical History Medical History none Surgical History none Family History none per patient Social History * Smoker: other drugs A-FIB/CHADSVASC A-FIB History Current/History of A-Fib/PAF?: No Review of Systems Constitutional: Denies: Chills, Fever, Malaise, Night Sweats, Weakness, Fatigue, Weight Loss, Lethargy, Other Eyes: Denies: Pain, Vision change, Conjunctivae inflammation, Eyelid inflammation, Redness, Other ENT: Denies: Head Aches, Ear Pain, Dysphagia, Sinus Congestion, Post Nasal Drip, Sore Throat, Epistaxis, Other Symptoms Skin: Denies: Rash, Lesions, Jaundice, Bruising, Itching, Dry, Breakdown, Nail Changes, Other Pulmonary: Denies: Dyspnea, Cough, Pleuritic Chest Pain, Other Symptoms Cardiovascular: Denies: Chest Pain, Palpitations, Orthopnea, Paroxysmal Noc. Dyspnea, Edema, Lt Headedness, Other Symptoms Gastrointestinal: Denies: Nausea, Vomiting, Abdominal Pain, Diarrhea, Constipation, Melena, Hematochezia, Other Symptoms Genitourinary: Denies: Dysuria, Frequency, Incontinence, Hematuria, Retention, Other Symptoms Hematologic: Denies: Bruising, Bleeding Excessively, Petecchia, Purpura, Enlarged Lymph Nodes, Other Hematologic Endocrine: Denies: Polydipsia, Polyphagia, Polyuria, Heat Intolerance, Cold Int olerance, Other Endocrine Sx Musculoskeletal: Denies: Neck Pain, Back Pain, Shoulder Pain, Arm Pain, Hand Pain, Leg Pain, Foot Pain, Joint Pain, Muscle Pain, Spasms, Other Symptoms Neurological: Denies: Weakness, Numbness, Incoordination, Change in speech, Confusion, Seizures, Other Symptoms Psych: Denies: Mood Normal, Anxiety, Depression, Memory Issues, Thoughts of Self Harm, Anger, Thoughts of Harming Other, Other Psych Physical Examination General Exam: Positive: Alert, Cooperative Eye Exam: Positive: Conjunctiva & lids normal ENT Exam: Positive: Atraumatic, Mucous membr. moist/pink Neck Exam: Positive: Supple Chest Exam: Positive: Clear to auscultation, Normal air movement Heart Exam: Positive: Rate Normal Abdomen Exam: Positive: Normal bowel sounds Extremity Exam: Positive: Other (no edema) Skin Exam: Positive: Nl turgor and temperature Neuro Exam: Positive: Normal Speech Vital Signs Vital Signs Date Time Temp Pulse Resp B/P (MAP) Pulse Ox O2 Delivery O2 Flow Rate FiO2 04/11/19 06:48 97.9 84 14 134/76 (95) Problems (1) Drug overdose Status: Acute Problem Text: The patient was intubated in the ICU for respiratory protection after he overdosed medications of unknown pills. Currently, the patient is medically stable. He does not have medical complaints. I do not see any contraindication to the patient being hospitalized in the [facility] unit. Please refer to the psychiatry team's management for his psychiatric disorder. Plan / VTE VTE Prophylaxis Ordered?: No (not indicated) ISHA MAURICIO MD Apr 11, 2019 14:51
[2019-04-11] MEDS: ATOMOXETINE HCL 40 MG CAP (STRATTERA) PO SCH (16:32)
[2019-04-11 18:06] VITALS: BP 114/61
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
[2019-04-12 06:58] VITALS: BP 109/59
[2019-04-12] MEDS: NICOTINE 21MG/24HR 1 EA TRANSDERMAL TD SCH (08:36)
[2019-04-12] MEDS: CLOBETASOL PROP 0.05% OINT 30 GM TOP SCH ×2 (08:37→20:05)
[2019-04-12] MEDS: ALPRAZolam 0.5 MG TAB PO SCH ×2 (08:37→20:04)
[2019-04-12] MEDS: BUPRENORPHINE/NALOXONE 8-2MG SUBLINGUAL TABLET(SUBOXONE) SL SCH ×2 (08:37→20:04)
[2019-04-12] MEDS: ATOMOXETINE HCL 40 MG CAP (STRATTERA) PO SCH (08:37)
[2019-04-12 18:07] VITALS: BP 118/58
[2019-04-12 21:00] VITALS: BP 118/58
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
--- NOTE | 2019-04-12 23:48 | MHIPNPDOC ---
[facility] Progress Note Progress Note DATE OF SERVICE: 04/12/19 HISTORY: Patient is a 33 -year-old , male, who, according to previous notes: "Patient is a 33-year-old male who initially presented into the emergency department via Emergency Medical Service (EMS) for a suspected overdose. The patient was intubated in the ER for not being able to protect his airway. EMS was called to the patient's home after a family member stated the patient took an unknown amount of pills, thought to be anywhere from 10 to 1/2 a bottle worth of seroquel, with possible Suboxone and Xanax and perhaps Klonopin in an attempt to harm himself. Upon arrival, EMS found the patient to be conscious and responsive to verbal stimuli. They did note some dried blood from multiple superficial lacerations on the patient's head. Patient's family member reported that the patient did vomit. EMS also stated that an unknown quantity of pills were found dissolved in the toilet near where the patient was found. Patient was subsequently transported to the emergency department where, upon arrival, patient was found to have a pulse of 152, a respiratory rate of 16, oxygen saturation of 95 on room air. Given patient's respiratory decline, decision was made to intubate the patient and place him on a ventilator. Baggage Screener was contacted for intensive care unit (ICU) admission and further management. The patient was successfully extubated without any complications two days before transfer to the inpatient psychiatry. Most likely, he overdosed medications or chemicals. UTox shows amphetamine and benzo, not clear what was overdosed. IV hydration was continued. He was also found to have rhabdomyolitis with an elevated CK level initially. Improved on IV hydration. Psychiatry was consulted, and the patient was deemed not safe to be discharged, given overdose of medication with a high risk of committing suicide. The patient was discharged to inpatient psychiatry unit." VITAL SIGNS: See below. NEW TEST RESULTS: See below CURRENT MEDICATIONS: See below. MENTAL STATUS EXAMINATION: General Appearance: well groomed, appears stated age Build: average Demeanor: sleepy, cooperative, calm Eye Contact: average Activity: calm, not restless, not fidgety Behavior: cooperative, sleepy Speech: clear, rapid, spontaneous, normal volume Mood: euthymic Affect: full, appropriate, congruent Thought Process: logical/linear Thought Content (Delusions): paranoia (He says he feels paranoid on and off (has been going on for several years)) Thought Content (Other): guilty for his recent unintentional overdose and for his previous legal problems related to drug problems Thought Content (Aggressive): Denies SI/HI/AV hallucinations Perception (Hallucinations): none reported Perception (Other): none reported Cognition (Impairment of): none reported Cognition(Intelligence Est.): average Oriented: Awake, Alert Insight: poor Judgment: Poor Psychosis: Denies Diagnoses 1. Bipolar 1 disorder 2. DEISY 3. ADHD by history 4. Cluster B personality (antisocial) 5. Substance abuse . ASSESSMENT: the patient reports he went to sleep very late last night, probably after midnight because he was reading and he finished one book. He started another one. He was sleeping all morning and when we spoke he had to be awakened. He was sleepy and said he felt calm. Will slowly increase his dose of Abilify. MANAGEMENT PLAN: Will increase Abilify TIME SPENT: 15 minutes. Vital Signs Vital Signs Date Time Temp Pulse Resp B/P (MAP) Pulse Ox O2 Delivery O2 Flow Rate FiO2 04/12/19 18:07 99.3 72 16 118/58 (78) Current Medications Current Medications Acetaminophen (Tylenol Tab) 650 mg Q6HP PRN PO HEADACHE or DISCOMFORT; Start 04/10/19 at 17:45 Al Hydrox/Mg Hydrox/Simethicone (Mylanta) 30 ml Q4HP PRN PO HEARTBURN/INDIGESTION; Start 04/10/19 at 17:45 Alprazolam (Xanax) 2 mg BID PO Last administered on 04/12/19at 20:04; Start 04/10/19 at 21:00 Aripiprazole (AbiLIFY) 2.5 mg BID PO Last administered on 04/12/19at 20:04; Start 04/11/19 at 21:00 Atomoxetine HCl (Strattera (Atomoxetine)) 40 mg QAM PO Last administered on 04/12/19at 08:37; Start 04/11/19 at 09:00 Buprenorphine/ Naloxone (Suboxone 8/2mg) 1 tab BID SL Last administered on 04/12/19at 08:37; Start 04/10/19 at 21:00; Stop 6/21/19 at 11:43; Status DC Buprenorphine/ Naloxone (Suboxone 8/2mg) 1 tab BID@0800,2000 SL Last administered on 04/12/19 20:04; Start 04/12/19 at 20:00 Clobetasol Propionate (Temovate 0.05%) 1 dose BID TOP Last administered on 04/12/19 20:05; Start 04/10/19 at 21:00 Magnesium Hydroxide (Milk Of Magnesia) 30 ml DAILYPRN PRN PO CONSTIPATION Last administered on 04/11/19at 20:32; Start 04/10/19 at 17:45 Nicotine (Nicoderm Cq 21mg) 1 patch DAILY TD Last administered on 04/12/19at 08:36; Start 04/11/19 at 09:00 Trazodone HCl (Desyrel) 50 mg QHSP PRN PO INSOMNIA; Start 04/10/19 at 17:45 Allergies Coded Allergies: No Known Allergies (Verified , 04/07/11) ROGERIO CAICEDO MD Apr 12, 2019 23:42
[2019-04-13 06:26] VITALS: BP 110/56
[2019-04-13] MEDS: BUPRENORPHINE/NALOXONE 8-2MG SUBLINGUAL TABLET(SUBOXONE) SL SCH ×2 (08:03→20:06)
[2019-04-13] MEDS: ATOMOXETINE HCL 40 MG CAP (STRATTERA) PO SCH (08:03)
[2019-04-13] MEDS: NICOTINE 21MG/24HR 1 EA TRANSDERMAL TD SCH (08:04)
[2019-04-13] MEDS: CLOBETASOL PROP 0.05% OINT 30 GM TOP SCH ×2 (08:04→20:07)
[2019-04-13] MEDS: ALPRAZolam 0.5 MG TAB PO SCH ×2 (08:04→20:06)
[2019-04-13] MEDS: DOCUSATE SODIUM 100 MG CAP PO SCH ×2 (13:00→20:07)
[2019-04-13 19:08] VITALS: BP 127/69
[2019-04-14 06:50] VITALS: BP 110/58
[2019-04-14] MEDS: BUPRENORPHINE/NALOXONE 8-2MG SUBLINGUAL TABLET(SUBOXONE) SL SCH ×2 (08:37→20:20)
[2019-04-14] MEDS: ALPRAZolam 0.5 MG TAB PO SCH ×2 (08:37→20:19)
[2019-04-14] MEDS: ATOMOXETINE HCL 40 MG CAP (STRATTERA) PO SCH (08:37)
[2019-04-14] MEDS: DOCUSATE SODIUM 100 MG CAP PO SCH ×2 (08:37→20:20)
[2019-04-14] MEDS: CLOBETASOL PROP 0.05% OINT 30 GM TOP SCH ×2 (08:38→20:15)
[2019-04-14] MEDS: NICOTINE 21MG/24HR 1 EA TRANSDERMAL TD SCH (08:38)
--- NOTE | 2019-04-14 08:43 | MHIPN ---
DATE OF SERVICE: 04/13/2019 The patient today states, 'I'm doing better." He says that his anxiety is better today, also. He says he slept well. He has no complaints. MENTAL STATUS EXAM: Patient is alert and oriented times three. He is pleasant and cooperative, verbally spontaneous. No formal thought disorder noted. Mood is good. Affect full range and appropriate. He is not psychotic, suicidal, or homicidal. Concentration and memory are good. Insight and judgment good. DIAGNOSES: 1. Bipolar disorder. 2. Generalized anxiety disorder. 3. Attention deficit hyperactivity disorder. 4. Cluster B personality disorder. 5. Substance abuse. TREATMENT PLAN: At this point, we will continue to monitor the patient for continued resolution of suicidal ideation and for further stabilization of his mood. Plans to discharge him with appropriate followup when stable.
[2019-04-14 18:16] VITALS: BP 125/60
--- NOTE | 2019-04-14 22:25 | IPN ---
DATE: 04/10/2019 The patient today states, "I'm doing better." He states, "Yesterday and today are the best days I've had in a while." He has no complaints. MENTAL STATUS EXAMINATION: He is alert and oriented times three. Eye contact is fair. Psychomotor activity is normal. There is no formal thought disorder noted. Mood is "good." Affect full range and appropriate. He is not psychotic. He is not suicidal or homicidal. Concentration is fair. Memory intact. Insight and judgment is fair. DIAGNOSES: 1. Bipolar disorder type 1. 2. Generalized anxiety disorder. 3. Attention-deficit/hyperactivity disorder (ADHD) by history. 4. Substance abuse. TREATMENT AND PLAN: At this point we will continue the patient on his current medications and we will continue to monitor him for continued elevation and stabilization of his mood and continued resolution of suicidal ideations.
[2019-04-15 06:43] VITALS: BP 109/63
[2019-04-15] MEDS: NICOTINE 21MG/24HR 1 EA TRANSDERMAL TD SCH ×2 (09:00→09:58)
[2019-04-15] MEDS: CLOBETASOL PROP 0.05% OINT 30 GM TOP SCH ×2 (09:10→20:10)
[2019-04-15] MEDS: ALPRAZolam 0.5 MG TAB PO SCH ×2 (09:10→20:13)
[2019-04-15] MEDS: ATOMOXETINE HCL 40 MG CAP (STRATTERA) PO SCH (09:10)
[2019-04-15] MEDS: DOCUSATE SODIUM 100 MG CAP PO SCH ×2 (09:10→20:10)
[2019-04-15] MEDS: BUPRENORPHINE/NALOXONE 8-2MG SUBLINGUAL TABLET(SUBOXONE) SL SCH ×2 (09:21→20:13)
[2019-04-15 18:00] VITALS: BP 132/70
--- NOTE | 2019-04-15 23:50 | MHIPNPDOC ---
[facility] Progress Note Progress Note DATE OF SERVICE: 04/15/19 HISTORY: Patient is a 33 -year-old , male, who, according to previous notes: "Patient is a 33-year-old male who initially presented into the emergency department via Emergency Medical Service (EMS) for a suspected overdose. The patient was intubated in the ER for not being able to protect his airway. EMS was called to the patient's home after a family member stated the patient took an unknown amount of pills, thought to be anywhere from 10 to 1/2 a bottle worth of seroquel, with possible Suboxone and Xanax and perhaps Klonopin in an attempt to harm himself. Upon arrival, EMS found the patient to be conscious and responsive to verbal stimuli. They did note some dried blood from multiple superficial lacerations on the patient's head. Patient's family member reported that the patient did vomit. EMS also stated that an unknown quantity of pills were found dissolved in the toilet near where the patient was found. Patient was subsequently transported to the emergency department where, upon arrival, patient was found to have a pulse of 152, a respiratory rate of 16, oxygen saturation of 95 on room air. Given patient's respiratory decline, decision was made to intubate the patient and place him on a ventilator. Wheel Adjuster was contacted for intensive care unit (ICU) admission and further management. The patient was successfully extubated without any complications two days before transfer to the inpatient psychiatry. Most likely, he overdosed medications or chemicals. UTox shows amphetamine and benzo, not clear what was overdosed. IV hydration was continued. He was also found to have rhabdomyolitis with an elevated CK level initially. Improved on IV hydration. Psychiatry was consulted, and the patient was deemed not safe to be discharged, given overdose of medication with a high risk of committing suicide. The patient was discharged to inpatient psychiatry unit." VITAL SIGNS: See below. NEW TEST RESULTS: See below CURRENT MEDICATIONS: See below. MENTAL STATUS EXAMINATION: General Appearance: well groomed, appears stated age Build: average Demeanor: alert, pleasant, cooperative, calm Eye Contact: average Activity: calm, not restless, not fidgety Behavior: cooperative, alert Speech: clear, rapid, spontaneous, normal volume Mood: euthymic Affect: full, appropriate, congruent Thought Process: logical/linear Thought Content (Delusions): paranoia (He says he feels paranoid on and off (has been going on for several years)) Thought Content (Other): guilty for his recent unintentional overdose and for his previous legal problems related to drug problems Thought Content (Aggressive): Denies SI/HI/AV hallucinations Perception (Hallucinations): none reported Perception (Other): none reported Cognition (Impairment of): none reported Cognition(Intelligence Est.): average Oriented: Awake, Alert Insight: poor Judgment: Poor Psychosis: Denies Diagnoses 1. Bipolar 1 disorder 2. DEISY 3. ADHD by history 4. Cluster B personality (antisocial) 5. Substance abuse . ASSESSMENT: The patient reports feeling calmer, he hasn't lost his tember, he has not been angry. He denies SI, HI. He is not psychotic. The plan is to discharge him tomorrow but he is concerned because he says his GF flushed his Xanax down the toilet the day he accidentally overdosed. His provider had given him a script for 60 Xanax. He will be discharged tomorrow. MANAGEMENT PLAN: Will continue with current treatment plan TIME SPENT: 15 minutes. Vital Signs Vital Signs Date Time Temp Pulse Resp B/P (MAP) Pulse Ox O2 Delivery O2 Flow Rate FiO2 04/15/19 18:00 97.9 77 16 132/70 (90) Current Medications Current Medications Acetaminophen (Tylenol Tab) 650 mg Q6HP PRN PO HEADACHE or DISCOMFORT; Start 04/10/19 at 17:45 Al Hydrox/Mg Hydrox/Simethicone (Mylanta) 30 ml Q4HP PRN PO HE ARTBURN/INDIGESTION; Start 04/10/19 at 17:45 Alprazolam (Xanax) 2 mg BID PO Last administered on 04/15/19at 20:13; Start 04/10/19 at 21:00 Aripiprazole (AbiLIFY) 2.5 mg BID PO Last administered on 04/15/19at 20:11; Start 04/11/19 at 21:00 Atomoxetine HCl (Strattera (Atomoxetine)) 40 mg QAM PO Last administered on 04/15/19at 09:10; Start 04/11/19 at 09:00 Buprenorphine/ Naloxone (Suboxone 8/2mg) 1 tab BID SL Last administered on 04/12/19 08:37; Start 04/10/19 at 21:00; Stop 04/12/19 at 11:43; Status DC Buprenorphine/ Naloxone (Suboxone 8/2mg) 1 tab BID@0800,2000 SL Last administered on 04/15/19 20:13; Start 04/12/19 at 20:00 Clobetasol Propionate (Temovate 0.05%) 1 dose BID TOP Last administered on 04/15/19 09:10; Start 04/10/19 at 21:00 Docusate Sodium (Colace) 200 mg BID PO Last administered on 04/15/19 09:10; Start 04/13/19 at 09:00 Magnesium Hydroxide (Milk Of Magnesia) 30 ml DAILYPRN PRN PO CONSTIPATION Last administered on 04/11/19 20:32; Start 04/10/19 at 17:45 Nicotine (Nicoderm Cq 21mg) 1 patch DAILY TD Last administered on 04/15/19 09:58; Start 04/11/19 at 09:00 Trazodone HCl (Desyrel) 50 mg QHSP PRN PO INSOMNIA Last administered on 04/15/19 20:13; Start 04/10/19 at 17:45 Allergies Coded Allergies: No Known Allergies (Verified , 04/07/11) ROGERIO CAICEDO MD Apr 15, 2019 23:49
[2019-04-16 06:12] VITALS: BP 141/69
[2019-04-16] MEDS: BUPRENORPHINE/NALOXONE 8-2MG SUBLINGUAL TABLET(SUBOXONE) SL SCH (07:56)
[2019-04-16] MEDS: ALPRAZolam 0.5 MG TAB PO SCH (08:02)
[2019-04-16] MEDS: CLOBETASOL PROP 0.05% OINT 30 GM TOP SCH (08:02)
[2019-04-16] MEDS: ATOMOXETINE HCL 40 MG CAP (STRATTERA) PO SCH (08:02)
[2019-04-16] MEDS: NICOTINE 21MG/24HR 1 EA TRANSDERMAL TD SCH (08:03)
[2019-04-16] MEDS: DOCUSATE SODIUM 100 MG CAP PO SCH (08:04)
[2019-04-16] MEDS ORDERED: ABIL1TAB11 PO (10:16)
[2019-04-16] MEDS ORDERED: ATOM40CA PO (10:18)
[2019-04-16] MEDS ORDERED: NICO21PAT TD (10:18)
[2019-04-16] MEDS ORDERED: CLOB05OI TOP (10:21)
[2019-04-16] MEDS ORDERED: TRAZ-252 PO (10:21)
== END 2019-04-16 10:45 | disposition home or self-care (01) | DRG 753 ==
LOC: M PSY 18:43
PROVIDERS: ADMIT Psychiatry & Neurology Psychiatry; ATTEND Psychiatry & Neurology Psychiatry
DX: F31.9 Bipolar disorder, unspecified (principal); F41.1 Generalized anxiety disorder; F11.90 Opioid use, unspecified, uncomplicated; F60.2 Antisocial personality disorder; Z79.899 Other long term (current) drug therapy; F90.9 Attention-deficit hyperactivity disorder, unspecified type

== ENCOUNTER 2019-09-01 05:30 | Emergency (ER) | payer MEDICAID ==
[~2019-09-01] VITALS: Ht 165.1 cm; Wt 59.1 kg
[~2019-09-01 05:30] MED LIST changes: +ABIL1TAB11 PO; +ATOM40CA PO; +NICO21PAT TD; -OMEP40CA2 PO; +OMEP40CA97 PO; +TRAZ-252 PO
[2019-09-01] MEDS ORDERED: IBUP80TA PO (07:14)
[2019-09-01] MEDS ORDERED: BACT800T5 PO (07:14)
[2019-09-01] MEDS ORDERED: IBUPROFEN 800 MG TAB PO ONE (07:15)
[2019-09-01] MEDS ORDERED: BACTRIM 160MG/800MG DS TAB PO ONE (07:15)
[2019-09-01 08:07] VITALS: BP 132/87
== END 2019-09-01 08:10 | disposition home or self-care (01) ==
LOC: M ED 05:30
DX: L03.116 Cellulitis of left lower limb (principal); Z87.891 Personal history of nicotine dependence; F12.10 Cannabis abuse, uncomplicated; F10.10 Alcohol abuse, uncomplicated; R51 Headache; M54.9 Dorsalgia, unspecified; Z86.19 Personal history of other infectious and parasitic diseases; F41.9 Anxiety disorder, unspecified; F32.9 Major depressive disorder, single episode, unspecified

== ENCOUNTER 2019-10-10 03:34 | Inpatient (IN) | payer OTHER ==
[~2019-10-10] VITALS: Ht 172.7 cm; Wt 58.1 kg
[~2019-10-10 03:34] MED LIST changes: +BACT800T5 PO; +IBUP80TA PO
[2019-10-10] MEDS ORDERED: NALOXONE INJ 0.4 MG/1 ML VIAL (J2310) As Ordered ONE (03:46)
[2019-10-10] MEDS ORDERED: NALOXONE INJ 2 MG/2 ML SYRINGE (J2310) As Ordered ONE (03:47)
[2019-10-10] MEDS ORDERED: NALOXONE INJ 2 MG/2 ML SYRINGE (J2310) IV STA ×2 (03:54→04:01)
[2019-10-10 04:27] LABS: HEMATOCRIT 39.1 % (42.0-52.0); MEAN CORPUSCULAR HEMOGLOBIN 29.3 pg (27.0-33.0); MEAN CORPUSCULAR HGB CONC 33.2 g/dl (32.0-36.5); MEAN CORPUSCULAR VOLUME 88.1 fl (80.0-96.0); RED BLOOD COUNT 4.44 10^6/uL (4.30-6.10); WHITE BLOOD COUNT 9.4 10^3/uL (4.0-10.0)
[2019-10-10 04:28] LABS: BASO % 0.3 % (0.0-1.0); EOS % 0.5 % (0.0-3.0); LYMPH % 21.8 % (24.0-44.0); MONO % 10.9 % (0.0-5.0); NEUTROPHILS # 6.2 10^3/uL (1.5-8.5); NEUTROPHILS % 66.3 % (36.0-66.0); PLATELET COUNT, AUTOMATED 341 10^3/uL (150-450)
[2019-10-10 04:29] LABS: EOS # 0.1 10^3/uL (0.0-0.5); LYMPH # 2.1 10^3/uL (1.5-5.0)
[2019-10-10 04:36] LABS: GLUCOSE, FASTING 118 MG/DL (70-100)
[2019-10-10 04:37] LABS: BLOOD UREA NITROGEN 19 MG/DL (7-18); CALCIUM LEVEL 8.9 MG/DL (8.5-10.1); CARBON DIOXIDE LEVEL 27 MEQ/L (21-32); CHLORIDE LEVEL 108 MEQ/L (98-107); CREATININE FOR GFR 0.88 MG/DL (0.70-1.30); GLOMERULAR FILTRATION RATE > 60.0 (>60); POTASSIUM SERUM 3.3 MEQ/L (3.5-5.1); SODIUM LEVEL 143 MEQ/L (136-145)
[2019-10-10 04:38] LABS: ALT/SGPT 30 U/L (12-78); BILIRUBIN,DIRECT 0.1 MG/DL (0.0-0.2); BILIRUBIN,TOTAL 0.2 MG/DL (0.2-1.0); CPK CREATINE PHOSPHOKINASE 134 U/L (39-308); ETHYL ALCOHOL (ETHANOL) < 0.003 % (0.000-0.010); TOTAL PROTEIN 7.3 GM/DL (6.4-8.2)
--- NOTE | 2019-10-10 04:42 | REPVR ---
PROCEDURE INFORMATION: Exam: CT Head Without Contrast Exam date and time: 10/10/19 (4:15am) Age: 34 years old Clinical indication: Altered mental status / memory loss. Coma or unconsciousness. Confusion or disorientation. TECHNIQUE: Imaging protocol: Computed tomography of the head without contrast. Radiation optimization: All CT scans at this facility use at least one of these dose optimization techniques: automated exposure control; mA and/or kV adjustment per patient size (includes targeted exams where dose is matched to clinical indication); or iterative reconstruction. COMPARISON: CT HEAD of 04/08/19 FINDINGS: Brain: Unremarkable. No acute hemorrhage. Unremarkable white matter. No mass effect. Ventricles: Normal. No ventriculomegaly. Bones/joints: Unremarkable. No acute fracture. Sinuses: Visualized sinuses are unremarkable. No air-fluid levels. Mastoid air cells: Visualized mastoid air cells are well aerated. Soft tissues: Unremarkable. IMPRESSION: No acute intracranial pathology is appreciated. Electronically signed by: Carola Alfonso On 10/10/2019 04:42:07 AM
[2019-10-10 04:44] LABS: AMPHETAMINES LEVEL URINE NEGATIVE (NEGATIVE); BARBITURATES URINE NEGATIVE (NEGATIVE); BENZODIAZEPINES URINE POSITIVE (NEGATIVE); CANNABINOIDS URINE NEGATIVE (NEGATIVE); COCAINE METABOLITE URINE NEGATIVE (NEGATIVE); METHADONE URINE NEGATIVE (NEGATIVE)
[2019-10-10 04:45] LABS: OPIATES URINE NEGATIVE (NEGATIVE); PHENCYCLIDINE URINE NEGATIVE (NEGATIVE)
[2019-10-10 04:48] LABS: VENOUS PARTIAL PRESSURE CO2 56.2 mmHg (38.0-50.0); VENOUS PH 7.294 UNITS (7.330-7.430)
[2019-10-10 04:49] LABS: VENOUS PARTIAL PRESSURE O2 36.1 mmHg (30.0-50.0); VENOUS TOTAL CO2 28.4 MEQ/L (24.0-28.0)
[2019-10-10 04:50] LABS: VENOUS O2 SATURATION 62.7 % (60.0-80.0)
[2019-10-10 04:51] LABS: VENOUS BASE EXCESS -0.9 (-2.0-2.0)
[2019-10-10 04:55] LABS: VENOUS HCO3 26.7 MEQ/L (23.0-27.0); VENOUS STANDARD HCO3 22.9 MEQ/L
[2019-10-10] MEDS ORDERED: NS 1,000 ML IV ONE (05:15)
[2019-10-10] MEDS ORDERED: NS 1,000 ML IV SCH (05:30)
[2019-10-10] MEDS ORDERED: KCL 10MEQ/100ML SWI (KRUN) 10 MEQ in IV 1 EA IV ONE (05:45)
[2019-10-10] MEDS ORDERED: ABIL10TA9 PO (06:10)
[2019-10-10] MEDS ORDERED: ALPR2TAB3 PO (06:10)
[2019-10-10] MEDS ORDERED: SUBO8MIS SL (06:10)
--- NOTE | 2019-10-10 06:24 | HPEPDOC ---
[facility] Medical History & Physical Date of Admission Oct 10, 2019 Date of Service: Oct 10, 2019 Attending Physician: NITO EPPS DO History and Physical CHIEF COMPLAINT: Altered Mental Status HISTORY OF PRESENT ILLNESS: Patient is a 34 year old male who presented to the [facility] Emergency Department with altered mental status. A complete HPI is unobtainable as the patient is not cooperative with questioning. Majority of patients past medical history is obtained from previous health records. Patient was found altered and brought to the ER by EMS. In the ER the patient was found to be vitally stable. CMP demonstrated mild hypokalemia and a mild lactic acidosis of 2.3. A head CT was performed which demonstrated no acute intracranial pathology. Urine toxicology was positive for benzodiazepines. An ABG performed demonstrated a respiratory acidosis. The patient remained with altered mental status and hosptialist service was consulted for further evaluation and management. PAST MEDICAL HISTORY: 1. Chronic Back Pain after a fall on 03/21/2019 2. Hepatitis C 3. Psoriatic Arthritis 4. History of IV heroin use 5. Suicidal Ideation PAST SURGICAL HISTORY: 1. Tonsillectomy 2. Adenoidectomy SOCIAL HISTORY: Unobtainable as patient is altered. Patient has a history of IV drug abuse. Documentation in medical record of heroin abuse. FAMILY HISTORY: Unobtainable as patient is altered ALLERGIES: Please see below. REVIEW OF SYSTEMS: Unable to obtain a complete ROS as patient is altered and uncooperative HOME MEDICATIONS: Please see below. PHYSICAL EXAMINATION: VITAL SIGNS: Temperature 96.7, pulse 77, respiratory rate 20, blood pressure 116/77, pulse oximetry 98% on room air. GENERAL APPEARANCE: Patient is asleep. He is arousable to pain and verbal stimuli. He is uncooperative with commands. He does not appear to be in acute distress. HEENT: Patient has an area of swelling over his left eyebrow with a small laceration. Trachea is midline. Eyes are nonicteric. Pupils are equal and reactive to light. CARDIOVASCULAR: Normal S1, S2. Regular rate and rhythm. No clicks, rubs, or murmurs auscultated. No displacement of the PMI. LUNGS: Clear vesicular breath sounds bilaterally with good respiratory effort. No wheezes rhonchi or rales. Symmetric chest expansion ABDOMEN: Soft, nondistended. No palpable masses or hernias. Patient has a diffuse papule appearing rash on patients abdomen. Normoactive bowel sounds throughout SKIN: Patient has a diffuse papular appearing rash on his abdomen and chest. EXTREMITIES: No edema. Full and equal pulses in bilateral upper and lower extremities. Patient hands have dried blood on them however, there are no visual lacerations on the patients hands NEUROLOGICAL: Patient is altered. He is arousable but does not respond to questioning or follow commands. Unable to perform full neurological exam. No focal neurological deficits LABORATORY DATA: See below. IMAGING: PROCEDURE INFORMATION: Exam: CT Head Without Contrast Exam date and time: 10/10/19 (4:15am) Age: 34 years old Clinical indication: Altered mental status / memory loss. Coma or unconsciousness. Confusion or disorientation. TECHNIQUE: Imaging protocol: Computed tomography of the head without contrast. Radiation optimization: All CT scans at this facility use at least one of these dose optimization techniques: automated exposure control; mA and/or kV adjustment per patient size (includes targeted exams where dose is matched to clinical indication); or iterative reconstruction. COMPARISON: CT HEAD of 04/08/19 FINDINGS: Brain: Unremarkable. No acute hemorrhage. Unremarkable white matter. No mass effect. Ventricles: Normal. No ventriculomegaly. Bones/joints: Unremarkable. No acute fracture. Sinuses: Visualized sinuses are unremarkable. No air-fluid levels. Mastoid air cells: Visualized mastoid air cells are well aerated. Soft tissues: Unremarkable. IMPRESSION: No acute intracranial pathology is appreciated. Electronically signed by: Carola Alfonso On 10/10/2019 04:42:07 AM MICROBIOLOGY: Please see below. ASSESSMENT: Patient is a 34 year old male with a history of substance abuse and suicidal ideation who presented to the [facility] ER with altered mental status and found to have a benzodiazepine over dose . PLAN: 1. Metabolic Encephalopathy 2/2 acute benzodiazepine intoxication/overdose -Patient presented altered. Urine drug screen was positive for benzodiazepines. Patient has a history of suicidal ideation in the past. -Currently the patient is stable. The patients alcohol level was < 0.003 and opiate level was negative. In the setting of a pure benzodiazepine overdose the treatment is generally supportive. The patient is vitally stable. He has a respiratory acidosis which may suggest some respiratory depression -Patient will be placed on telemetry. -Vital Signs Q4H. -IV fluids -Ammonia level was 29. 2. Hypokalemia -Patient had potassium of 3.3. -K-run x1 -Will trend and replace PRN 3. Lactic Acidosis -Mild lactic acidosis. Will likely correct with IV fluids 4. Diffuse Rash -Patient has a diffuse rash that appears papular. His chart states that he has a history of psoriatic arthritis however, his rash did not appear psoriatic. Given his history of IV drug use will order RPR screen, Hep C quant, Hep B, Hep A, and HIV testing. Additionally in the setting of established hep C infection will order cryoglobulins to assess for cryoglobulinemia 5. DVT prophylaxis -Heparin SQ I, Nito Epps, have independently examined this patient and performed my own physical exam, as well as reviewed the documentation and edited where necessary. I have discussed in detail with the resident / student the findings and plan of treatment as documented by the resident / student and edited their note. I agree with their findings and treatment plan and have edited their documentation. I will continue to follow the patient during this hospital stay. Vital Signs Vital Signs Date Time Temp Pulse Resp B/P (MAP) Pulse Ox O2 Delivery O2 Flow Rate FiO2 10/10/19 04:19 77 98 10/10/19 03:43 96.7 20 116/77 (90) Room Air Laboratory Data Labs 24H Laboratory Tests 2 10/10/19 03:51: Immature Granulocyte % (Auto) 0.2, Neutrophils (%) (Auto) 66.3H, Lymphocytes (%) (Auto) 21.8L, Monocytes (%) (Auto) 10.9H, Eosinophils (%) (Auto) 0.5, Basophils (%) (Auto) 0.3, Neutrophils # (Auto) 6.2, Lymphocytes # (Auto) 2.1, Monocytes # (Auto) 1.0H, Eosinophils # (Auto) 0.1, Basophils # (Auto) 0.0, Nucleated Red Blood Cells % (auto) 0.0 10/10/19 04:01: Anion Gap 8, Glomerular Filtration Rate > 60.0, Lactic Acid Level 2.3*H, Calcium Level 8.9, Total Bilirubin 0.2, Direct Bilirubin 0.1, Aspartate Amino Transf (AST/SGOT) 13, Alanine Aminotransferase (ALT/SGPT) 30, Alkaline Phosphatase 68, Ammonia 29, Total Creatine Kinase 134, Total Protein 7.3, Albumin 4.0, Albumin/Globulin Ratio 1.21, Ethyl Alcohol Level < 0.003 10/10/19 04:10: Urine Opiates Screen NEGATIVE, Urine Methadone Screen NEGATIVE, Urine Barbiturates Screen NEGATIVE, Urine Phencyclidine Screen NEGATIVE, Urine Amphetamines Screen NEGATIVE, Urine Benzodiazepines Screen POSITIVEH, Urine Cocaine Metabolite Screen NEGATIVE, Urine Cannabinoids Screen NEGATIVE 10/10/19 04:33: 10/10/19 04:43: Blood Gas Bicarbonate Standard 22.9, Venous Blood pH 7.294L, Venous Blood Partial Pressure CO2 56.2H, Venous Blood Partial Pressure O2 36.1, Venous Blood Total Carbon Dioxide 28.4H, Venous Blood HCO3 26.7, Venous Blood Oxygen Saturation 62.7, Venous Blood Base Excess -0.9 CBC/BMP Laboratory Tests 10/10/19 03:51 10/10/19 04:01 Home Medications Scheduled Alprazolam (Alprazolam) 2 Mg Tablet, 2 MG PO TID Aripiprazole (Abilify) 10 Mg Tablet, 10 MG PO DAILY Buprenorphine HCl/Naloxone HCl (Suboxone 8 mg-2 mg Sl Film) 1 Each Film, 1 STRIP SL BID Allergies Coded Allergies: No Known Allergies (Verified , 10/10/19) A-FIB/CHADSVASC A-FIB History Current/History of A-Fib/PAF?: No TRACI LOWE DO Oct 10, 2019 06:24 NITO EPPS DO Oct 14, 2019 23:31
[2019-10-10 07:38] LABS: ABG BASE EXCESS -1.9 (-2.0-2.0); ABG HCO3 22.9 MEQ/L (22.0-26.0); ABG O2 SATURATION 98.2 % (95.0-99.0); ABG PARTIAL PRESSURE O2 111.5 mmHg (75.0-100.0); ABG STANDARD HCO3 22.9 MEQ/L (22.0-26.0); ABG TOTAL CO2 24.1 MEQ/L (22.0-29.0); ABG pH (ARTERIAL) 7.386 UNITS (7.350-7.450)
[2019-10-10 08:00] VITALS: BP 125/81
[2019-10-10] MEDS ORDERED: BUPRENORPHINE/NALOXONE 8-2MG SUBLINGUAL TABLET(SUBOXONE) SL SCH (09:00)
[2019-10-10] MEDS ORDERED: POTASSIUM CHLORIDE 10 MEQ SR TABLET PO ONE (09:00)
[2019-10-10] MEDS ORDERED: HEPARIN SOD (PORCINE) 5000 UNITS/ML VIAL SC SCH (09:00)
[2019-10-10] MEDS ORDERED: ARIPiprazole 10 MG TAB PO SCH (09:00)
--- NOTE | 2019-10-10 11:41 | DS.PDOC ---
Discharge Summary General Date of Admission Oct 10, 2019 at 05:15 Date of Discharge 10/10/2019 Discharge Summary PROCEDURES PERFORMED DURING STAY: [None]. 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 Initially the patient's history was unobtainable as he was altered. Patient was reported to be on Suboxone and high doses of benzodiazepines. Initial blood gas in the emergency room revealed respiratory acidosis. Patient was able to maintain his own airway and was breathing adequately. Upon evaluation of the patient this morning he was fully alert and oriented to person, place and time. Patient had no suicidal or homicidal ideation. Patient was adamant that he wanted Suboxone to be prescribed upon discharge. Patient was advised that we will not be able to prescribe him Suboxone and he will at the follow-up with his primary care provider as an outpatient. He was further explained that his current medical condition was likely a result of respiratory depression from Suboxone and benzodiazpines and was advised to reduce and ultimately stop its use while following his outpatient provider. Patient became upset and left AGAINST MEDICAL ADVICE. Patient was advised the risks and benefits of leaving AGAINST MEDICAL ADVICE. , Worse were described as worsening medical condition disability and/or . 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 DISCHARGE MEDICATIONS: Please see below. ALLERGIES: Please see below. PHYSICAL EXAMINATION ON DISCHARGE: Vitals (See below) General: Lying in bed, no acute distress, comfortable, AAOx3 HEENT: NC, AT CVS: RRR, +S1S2 Lungs: Fair air entry b/l, -w/r/r Abdomen: Soft, ND, NT Extremities: - Edema, - Calf tenderness LABORATORY DATA: Please see below. ACTIVITY: [As tolerated]. DISCHARGE PLAN: Follow up with PCP as soon as possible Return to the ER if you experience any problems DISPOSITION: Against medical advise - Home DISCHARGE CONDITION: [Stable]. TIME SPENT ON DISCHARGE: 25 minutes Vital Signs/I&Os Vital Signs Date Time Temp Pulse Resp B/P (MAP) Pulse Ox O2 Delivery O2 Flow Rate FiO2 10/10/19 08:00 125/81 (96) 10/10/19 07:49 95 16 10/10/19 07:34 100 Room Air 10/10/19 03:43 96.7 Laboratory Data Labs 24H Laboratory Tests 2 10/10/19 03:51: Immature Granulocyte % (Auto) 0.2, Neutrophils (%) (Auto) 66.3H, Lymphocytes (%) (Auto) 21.8L, Monocytes (%) (Auto) 10.9H, Eosinophils (%) (Auto) 0.5, Basophils (%) (Auto) 0.3, Neutrophils # (Auto) 6.2, Lymphocytes # (Auto) 2.1, Monocytes # (Auto) 1.0H, Eosinophils # (Auto) 0.1, Basophils # (Auto) 0.0, Nucleated Red Blood Cells % (auto) 0.0 10/10/19 04:01: Anion Gap 8, Glomerular Filtration Rate > 60.0, Lactic Acid Level 2.3*H, Calcium Level 8.9, Total Bilirubin 0.2, Direct Bilirubin 0.1, Aspartate Amino Transf (AST/SGOT) 13, Alanine Aminotransferase (ALT/SGPT) 30, Alkaline Phosphatase 68, Ammonia 29, Total Creatine Kinase 134, Total Protein 7.3, Albumin 4.0, Albumin/Globulin Ratio 1.21, Ethyl Alcohol Level < 0.003 10/10/19 04:10: Urine Opiates Screen NEGATIVE, Urine Methadone Screen NEGATIVE, Urine Barbiturates Screen NEGATIVE, Urine Phencyclidine Screen NEGATIVE, Urine Amphetamines Screen NEGATIVE, Urine Benzodiazepines Screen POSITIVEH, Urine Cocaine Metabolite Screen NEGATIVE, Urine Cannabinoids Screen NEGATIVE 10/10/19 04:33: Bedside Glucose (Misc Panel) 99 10/10/19 04:43: Blood Gas Bicarbonate Standard 22.9, Venous Blood pH 7.294L, Venous Blood Partial Pressure CO2 56.2H, Venous Blood Partial Pressure O2 36.1, Venous Blood Total Carbon Dioxide 28.4H, Venous Blood HCO3 26.7, Venous Blood Oxygen Saturation 62.7, Venous Blood Base Excess -0.9 10/10/19 06:30: 10/10/19 07:30: Blood Gas Bicarbonate Standard 22.9, Arterial Blood pH 7.386, Arterial Blood Partial Pressure CO2 39.0, Arterial Blood Partial Pressure O2 111.5H, Arterial Blood Total CO2 24.1, Arterial Blood HCO3 22.9, Arterial Blood Base Excess -1.9, Arterial Blood Oxygen Saturation 98.2 10/10/19 08:46: Lactic Acid Followup at 4 Hours 1.3 CBC/BMP Laboratory Tests 10/10/19 03:51 10/10/19 04:01 FSBS Laboratory Tests Test 10/10/19 04:33 Range/Units Bedside Glucose (Misc Panel) 99 70-105 MG/DL Discharge Medications Scheduled Alprazolam (Alprazolam) 2 Mg Tablet, 2 MG PO TID, (Reported) Aripiprazole (Abilify) 10 Mg Tablet, 10 MG PO DAILY, (Reported) Buprenorphine HCl/Naloxone HCl (Suboxone 8 mg-2 mg Sl Film) 1 Each Film, 1 STRIP SL BID, (Reported) Allergies Coded Allergies: No Known Allergies (Verified , 10/10/19) RYNE RUSSELL MD Oct 10, 2019 11:41
[2019-10-11 10:24] LABS: CRYOGLOBULINS NEGATIVE (NEGATIVE)
[2019-10-11 12:41] LABS: HEPATITIS A ANTIBODY IGM NEGATIVE (NEGATIVE); HEPATITIS B SURFACE ANTIBODY POSITIVE (POSITIVE); HEPATITIS B SURFACE ANTIGEN NEGATIVE (NEGATIVE); HIV 1&2 SCREEN CENTAUR NEGATIVE (NEGATIVE)
[2019-10-14 14:38] LABS: HEPATITIS C QUANTITATION 449050 IU/mL (.)
== END 2019-10-10 08:45 | disposition left against medical advice (07) | DRG 812 ==
LOC: M ED 03:34 → M ED INP 05:15
PROVIDERS: ADMIT Internal Medicine; ATTEND Internal Medicine
DX: T42.4X4A Poisoning by benzodiazepines, undetermined, initial encounter (principal); G92 Toxic encephalopathy; E87.4 Mixed disorder of acid-base balance; L40.50 Arthropathic psoriasis, unspecified; E87.6 Hypokalemia; R21 Rash and other nonspecific skin eruption; L40.4 Guttate psoriasis; Z79.899 Other long term (current) drug therapy

== ENCOUNTER → 2019-11-23 | Outpatient (CLI) | payer OTHER ==
[~2019-11-23] MED LIST changes: +ABIL10TA9 PO; +ALPR2TAB3 PO
[2019-11-23 15:02] LABS: HEMATOCRIT 44.1 % (42.0-52.0); HEMOGLOBIN 14.4 g/dl (13.5-17.5); MEAN CORPUSCULAR HEMOGLOBIN 29.1 pg (27.0-33.0); MEAN CORPUSCULAR HGB CONC 32.7 g/dl (32.0-36.5); MEAN CORPUSCULAR VOLUME 89.1 fl (80.0-96.0); PLATELET COUNT, AUTOMATED 402 10^3/uL (150-450); RED BLOOD COUNT 4.95 10^6/uL (4.30-6.10); WHITE BLOOD COUNT 11.4 10^3/uL (4.0-10.0)
[2019-11-23 15:28] LABS: ALBUMIN 3.7 GM/DL (3.2-5.2); ALT/SGPT 40 U/L (12-78); BILIRUBIN,TOTAL 0.4 MG/DL (0.2-1.0); BLOOD UREA NITROGEN 9 MG/DL (7-18); CALCIUM LEVEL 8.8 MG/DL (8.5-10.1); CARBON DIOXIDE LEVEL 30 MEQ/L (21-32); CHLORIDE LEVEL 106 MEQ/L (98-107); CREATININE FOR GFR 0.92 MG/DL (0.70-1.30); GLOMERULAR FILTRATION RATE > 60.0 (>60); GLUCOSE, FASTING 102 MG/DL (70-100); SODIUM LEVEL 142 MEQ/L (136-145); TOTAL PROTEIN 7.3 GM/DL (6.4-8.2)
[2019-11-23 16:40] LABS: CHLAMYDIA DNA AMPLIFICATION NEGATIVE (NEGATIVE); GC DNA AMPLIFICATION NEGATIVE (NEGATIVE)
--- NOTE | 2019-11-24 23:23 | ECGEPIP ---
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 Electronically Signed on 11-24-2019 23:22:52 EST by Frederick Brandt
[2019-11-25 11:18] LABS: HEPATITIS B SURFACE ANTIGEN NEGATIVE (NEGATIVE)
[2019-11-25 11:46] LABS: HIV 1&2 SCREEN CENTAUR NEGATIVE (NEGATIVE)
[2019-11-25 12:34] LABS: HEPATITIS C VIRUS ABY INDEX > 11.0 INDEX (<0.8)
== END ==
LOC: M LAB 14:24
PROVIDERS: ATTEND Family Medicine
DX: F11.20 Opioid dependence, uncomplicated (principal)

== ENCOUNTER 2020-01-21 03:03 | Emergency (ER) | payer OTHER ==
[~2020-01-21] VITALS: Ht 167.6 cm; Wt 63.6 kg
[2020-01-21 03:09] VITALS: BP 120/67
[2020-01-21] MEDS ORDERED: METH10CO3 PO (03:09)
[2020-01-21] MEDS ORDERED: ADACEL/BOOSTRIX VACCINE (DIPHTH/PERTUSS/ACELL/TETANUS)0.5ML SYR (90715) IM ONE (03:15)
[2020-01-21] MEDS ORDERED: cefTRIAXone SOD 1GM VIAL (J0696 PER 250MG) IM ONE (03:15)
[2020-01-21] MEDS ORDERED: LIDOCAINE 1% SDV 5 ML VIAL DILUENT ONE (03:15)
[2020-01-21] MEDS ORDERED: BACT800T5 PO (03:16)
== END 2020-01-21 04:45 | disposition home or self-care (01) ==
LOC: EDBD 03:03 → M ED 03:03
DX: F15.10 Other stimulant abuse, uncomplicated (principal); T88.1XXA Other complications following immunization, not elsewhere classified, initial encounter; Y92.9 Unspecified place or not applicable; Y93.89 Activity, other specified; L40.9 Psoriasis, unspecified; F17.200 Nicotine dependence, unspecified, uncomplicated; Z79.899 Other long term (current) drug therapy
CPT/HCPCS: 90471; 90715; 96372; 99283; J0696

== ENCOUNTER 2020-02-11 11:38 | Emergency (ER) | payer OTHER ==
[~2020-02-11] VITALS: Ht 165.1 cm; Wt 60.3 kg
[2020-02-11 11:38] VITALS: BP 109/59
[~2020-02-11 11:38] MED LIST changes: -ATOM40CA PO; +ATOM40CA16 PO; +CYCL-707 PO; -CYCL10TA PO; +METH10CO3 PO
[2020-02-11] MEDS ORDERED: BACTRIM 160MG/800MG DS TAB PO ONE (12:15)
[2020-02-11] MEDS ORDERED: IBUPROFEN 800 MG TAB PO ONE (12:15)
[2020-02-11] MEDS ORDERED: BACT800T5 PO (12:16)
== END 2020-02-11 12:20 | disposition left against medical advice (07) ==
LOC: M ED 11:38
DX: R22.42 Localized swelling, mass and lump, left lower limb (principal); Z53.21 Procedure and treatment not carried out due to patient leaving prior to being seen by health care provider; F17.220 Nicotine dependence, chewing tobacco, uncomplicated

== ENCOUNTER 2020-03-31 01:29 | Emergency (ER) | payer OTHER ==
[~2020-03-31] VITALS: Ht 165.1 cm; Wt 61.4 kg
[2020-03-31 01:29] VITALS: BP 107/81
== END 2020-03-31 02:30 | disposition home or self-care (01) ==
LOC: M ED 01:29
DX: F19.129 Other psychoactive substance abuse with intoxication, unspecified (principal); Z86.19 Personal history of other infectious and parasitic diseases; Z79.899 Other long term (current) drug therapy

== ENCOUNTER → 2020-04-13 | Outpatient (CLI) | payer OTHER ==
[2020-04-13 12:08] LABS: BASO % 0.7 % (0.0-1.0); EOS # 0.1 10^3/uL (0.0-0.5); EOS % 2.2 % (0.0-3.0); LYMPH # 2.4 10^3/uL (1.5-5.0); LYMPH % 40.1 % (24.0-44.0); MEAN CORPUSCULAR HEMOGLOBIN 29.7 pg (27.0-33.0); MEAN CORPUSCULAR HGB CONC 34.1 g/dl (32.0-36.5); MONO # 0.5 10^3/uL (0.0-0.8); NEUTROPHILS # 2.9 10^3/uL (1.5-8.5); NEUTROPHILS % 47.7 % (36.0-66.0); PLATELET COUNT, AUTOMATED 373 10^3/uL (150-450); RED BLOOD COUNT 4.71 10^6/uL (4.30-6.10)
[2020-04-13 12:23] LABS: HEPATITIS B SURFACE ANTIBODY POSITIVE (POSITIVE)
[2020-04-13 12:25] LABS: ALBUMIN 3.9 GM/DL (3.2-5.2); ALT/SGPT 58 U/L (12-78); BILIRUBIN,TOTAL 0.3 MG/DL (0.2-1.0); BLOOD UREA NITROGEN 15 MG/DL (7-18); CALCIUM LEVEL 9.3 MG/DL (8.5-10.1); CARBON DIOXIDE LEVEL 30 MEQ/L (21-32); CHLORIDE LEVEL 104 MEQ/L (98-107); CREATININE FOR GFR 0.99 MG/DL (0.70-1.30); GLOMERULAR FILTRATION RATE > 60.0 (>60); GLUCOSE, FASTING 99 MG/DL (70-100); POTASSIUM SERUM 3.9 MEQ/L (3.5-5.1); SODIUM LEVEL 140 MEQ/L (136-145); TOTAL PROTEIN 7.9 GM/DL (6.4-8.2)
[2020-04-13 13:02] LABS: HIV 1&2 SCREEN CENTAUR NEGATIVE (NEGATIVE)
[2020-04-18 21:07] LABS: HEPATITIS A IgG TOTAL Positive (Negative); HEPATITIS C QUANTITATION 428320 IU/mL (.); HEPATITIS C VIRUS GENOTYPE 3 (.)
== END ==
LOC: M PLALAB 08:54
PROVIDERS: ATTEND Internal Medicine Infectious Disease
DX: B18.2 Chronic viral hepatitis C (principal)

== ENCOUNTER 2020-06-12 20:14 | Emergency (ER) | payer OTHER ==
[2020-06-12 21:00] VITALS: BP 131/79
== END 2020-06-12 21:35 | disposition home or self-care (01) ==
LOC: M ED 20:14
DX: Z60.9 Problem related to social environment, unspecified (principal); F19.10 Other psychoactive substance abuse, uncomplicated; Z79.899 Other long term (current) drug therapy

== ENCOUNTER → 2020-06-18 | Outpatient (CLI) | payer OTHER ==
[2020-06-18 13:39] LABS: ALBUMIN 4.1 GM/DL (3.2-5.2); BILIRUBIN,DIRECT 0.3 MG/DL (0.0-0.2); BILIRUBIN,TOTAL 0.7 MG/DL (0.2-1.0); TOTAL PROTEIN 7.4 GM/DL (6.4-8.2)
[2020-06-19 23:10] LABS: HEPATITIS C QUANTITATION HCV Not Detected IU/mL (.)
== END ==
LOC: M PLALAB 08:55
PROVIDERS: ATTEND Internal Medicine Infectious Disease
DX: L40.8 Other psoriasis (principal)

== ENCOUNTER → 2020-07-20 | Outpatient (CLI) | payer OTHER | LOC: M PLALAB 09:57 | PROVIDERS: ATTEND Family Medicine | DX: F11.10 Opioid abuse, uncomplicated (principal) | CPT/HCPCS: 36415; G0480 ==

== ENCOUNTER → 2020-07-22 | Outpatient (CLI) | payer OTHER | LOC: M PLALAB 10:19 | PROVIDERS: ATTEND Family Medicine | DX: F11.10 Opioid abuse, uncomplicated (principal) | CPT/HCPCS: 36415; G0480 ==

== ENCOUNTER → 2020-07-23 | Outpatient (CLI) | payer OTHER | LOC: M LAB 06:04 | PROVIDERS: ATTEND Family Medicine | DX: F11.10 Opioid abuse, uncomplicated (principal) | CPT/HCPCS: 36415; G0480 ==

== ENCOUNTER 2020-09-06 09:39 | Emergency (ER) | payer OTHER, SELFPAY ==
[~2020-09-06] VITALS: Ht 165.1 cm; Wt 68.8 kg
[2020-09-06 09:40] VITALS: BP 140/94
[2020-09-06] MEDS ORDERED: ALPR2TAB3 PO (09:48)
[2020-09-06] MEDS ORDERED: METH10TA2 PO (09:48)
[2020-09-07] MEDS ORDERED: ARIP1TAB10 (11:51)
[2020-09-07] MEDS ORDERED: GABA-843 (11:51)
[2020-09-07] MEDS ORDERED: KEFL500C17 PO (17:35)
== END 2020-09-06 10:22 | disposition left against medical advice (07) ==
LOC: M ED 09:39
DX: M79.662 Pain in left lower leg (principal); Z53.9 Procedure and treatment not carried out, unspecified reason; Z79.899 Other long term (current) drug therapy

== ENCOUNTER 2020-09-07 11:34 | Emergency (ER) | payer OTHER, SELFPAY ==
[~2020-09-07] VITALS: Ht 165.1 cm; Wt 69.7 kg
[~2020-09-07 11:34] MED LIST changes: +METH10TA2 PO
[2020-09-07] MEDS ORDERED: ARIP1TAB10 (11:51)
[2020-09-07] MEDS ORDERED: GABA-843 (11:51)
[2020-09-07 13:04] LABS: BASO % 0.3 % (0.0-1.0); EOS % 0.2 % (0.0-3.0); HEMATOCRIT 39.6 % (42.0-52.0); HEMOGLOBIN 13.2 g/dl (13.5-17.5); LYMPH # 0.7 10^3/uL (1.5-5.0); LYMPH % 12.7 % (24.0-44.0); MEAN CORPUSCULAR HEMOGLOBIN 28.5 pg (27.0-33.0); MEAN CORPUSCULAR HGB CONC 33.3 g/dl (32.0-36.5); MEAN CORPUSCULAR VOLUME 85.5 fl (80.0-96.0); MONO # 0.5 10^3/uL (0.0-0.8); MONO % 9.3 % (0.0-5.0); NEUTROPHILS # 4.5 10^3/uL (1.5-8.5); PLATELET COUNT, AUTOMATED 328 10^3/uL (150-450); RED BLOOD COUNT 4.63 10^6/uL (4.30-6.10); WHITE BLOOD COUNT 5.8 10^3/uL (4.0-10.0)
--- NOTE | 2020-09-07 13:31 | REP ---
INDICATION: redness, swelling, pain R/O DVT COMPARISON: None. TECHNIQUE: Real time compression and duplex Doppler interrogation of the left lower extremity deep venous system is performed. FINDINGS: The left common femoral, superficial femoral and popliteal veins are fully compressible with transducer pressure and demonstrate normal spontaneous and phasic flow, without evidence of deep venous thrombosis. IMPRESSION: No evidence of deep venous thrombosis of the left lower extremity femoral popliteal venous system. <Electronically signed by Moy Newell > 09/07/20 [id number]
[2020-09-07 13:52] LABS: ERYTHROCYTE SEDIMENTATION RATE 72 mm/hr (0-15)
[2020-09-07] MEDS ORDERED: ceFAZolin SOD 1 GM in D5W MINI-BAG PLUS 50 ML IV ONE (15:00)
[2020-09-07 15:20] LABS: AMPHETAMINES LEVEL URINE NEGATIVE (NEGATIVE); BARBITURATES URINE NEGATIVE (NEGATIVE); BENZODIAZEPINES URINE POSITIVE (NEGATIVE); CANNABINOIDS URINE NEGATIVE (NEGATIVE); COCAINE METABOLITE URINE NEGATIVE (NEGATIVE); METHADONE URINE POSITIVE (NEGATIVE); OPIATES URINE NEGATIVE (NEGATIVE); PHENCYCLIDINE URINE NEGATIVE (NEGATIVE)
[2020-09-07 16:37] LABS: ALBUMIN 3.4 GM/DL (3.2-5.2); ALT/SGPT 11 U/L (12-78); BILIRUBIN,DIRECT 0.2 MG/DL (0.0-0.2); BILIRUBIN,TOTAL 0.6 MG/DL (0.2-1.0); BLOOD UREA NITROGEN 10 MG/DL (7-18); CALCIUM LEVEL 8.5 MG/DL (8.5-10.1); CARBON DIOXIDE LEVEL 28 MEQ/L (21-32); CHLORIDE LEVEL 99 MEQ/L (98-107); ETHYL ALCOHOL (ETHANOL) < 0.003 % (0.000-0.010); GLOMERULAR FILTRATION RATE > 60.0 (>60); GLUCOSE, FASTING 78 MG/DL (70-100); POTASSIUM SERUM 3.3 MEQ/L (3.5-5.1); SODIUM LEVEL 134 MEQ/L (136-145); TOTAL PROTEIN 6.9 GM/DL (6.4-8.2)
[2020-09-07] MEDS ORDERED: IBUPROFEN 800 MG TAB PO ONE (16:45)
[2020-09-07] MEDS ORDERED: ACETAMINOPHEN 500 MG TAB PO ONE (16:45)
[2020-09-07] MEDS ORDERED: NS 1,000 ML IV ONE (16:45)
[2020-09-07] MEDS ORDERED: POTASSIUM CHLORIDE 10 MEQ SR TABLET PO ONE (17:30)
[2020-09-07] MEDS ORDERED: KEFL500C17 PO (17:35)
[2020-09-07 19:09] VITALS: BP 150/50
== END 2020-09-07 19:08 | disposition home or self-care (01) ==
LOC: M ED 11:34
DX: L03.116 Cellulitis of left lower limb (principal); F17.200 Nicotine dependence, unspecified, uncomplicated; B18.2 Chronic viral hepatitis C
CPT/HCPCS: 36415; 80048; 80076; 80307; 83605; 85025; 85652; 86140; 87040; 93971; 96365; 96366; 99284; G0480; J0690

== ENCOUNTER 2020-10-18 23:38 | Emergency (ER) | payer OTHER ==
[~2020-10-18 23:38] MED LIST changes: +ARIP1TAB10; +GABA-843; +KEFL500C17 PO
[2020-10-18 23:49] VITALS: BP 129/95
[2020-10-19 01:52] LABS: AMPHETAMINES LEVEL URINE NEGATIVE (NEGATIVE); BARBITURATES URINE NEGATIVE (NEGATIVE); BENZODIAZEPINES URINE POSITIVE (NEGATIVE); CANNABINOIDS URINE NEGATIVE (NEGATIVE); COCAINE METABOLITE URINE NEGATIVE (NEGATIVE); METHADONE URINE POSITIVE (NEGATIVE); OPIATES URINE NEGATIVE (NEGATIVE); PHENCYCLIDINE URINE NEGATIVE (NEGATIVE)
== END 2020-10-19 01:05 | disposition home or self-care (01) ==
LOC: M ED 23:38
DX: Z04.89 Encounter for examination and observation for other specified reasons (principal); X31.XXXA Exposure to excessive natural cold, initial encounter; Y92.89 Other specified places as the place of occurrence of the external cause; Y93.9 Activity, unspecified; Y99.9 Unspecified external cause status; F11.10 Opioid abuse, uncomplicated; F17.200 Nicotine dependence, unspecified, uncomplicated; Z79.899 Other long term (current) drug therapy

== ENCOUNTER → 2020-10-30 | Outpatient (REF) | payer OTHER ==
[~2020-10-30] MED LIST changes: -AMIT25TA PO; +AMIT25TA17 PO; +GABA-282; -GABA-843
[2020-10-30 16:31] LABS: ALT/SGPT 23 U/L (12-78); BILIRUBIN,DIRECT < 0.1 MG/DL (0.0-0.2); BILIRUBIN,TOTAL 0.3 MG/DL (0.2-1.0); TOTAL PROTEIN 7.3 GM/DL (6.4-8.2)
[2020-11-03 11:07] LABS: HEPATITIS C QUANTITATION HCV Not Detected IU/mL (.)
== END ==
LOC: M SFHCPLAZ 13:23
PROVIDERS: ATTEND Internal Medicine Infectious Disease
DX: B18.2 Chronic viral hepatitis C (principal)

== ENCOUNTER 2021-01-10 22:50 | Emergency (ER) | payer OTHER ==
[~2021-01-10] VITALS: Ht 170.2 cm; Wt 72.4 kg
[2021-01-10] MEDS ORDERED: NALOXONE 2MG/2ML SYRINGE (J2310 PER 1MG) IV STA (23:01)
[2021-01-10] MEDS ORDERED: NS 1,000 ML IV ONE (23:05)
[2021-01-10 23:21] LABS: HEMATOCRIT 41.6 % (42.0-52.0); HEMOGLOBIN 13.7 g/dl (13.5-17.5); MEAN CORPUSCULAR HGB CONC 32.9 g/dl (32.0-36.5); MEAN CORPUSCULAR VOLUME 87.9 fl (80.0-96.0); PLATELET COUNT, AUTOMATED 381 10^3/uL (150-450); RED BLOOD COUNT 4.73 10^6/uL (4.30-6.10); WHITE BLOOD COUNT 9.6 10^3/uL (4.0-10.0)
--- NOTE | 2021-01-10 23:35 | REPVR ---
PROCEDURE INFORMATION: Exam: CT Head Without Contrast Exam date and time: 01/10/2021 11:11 PM Age: 35 years old Clinical indication: Altered mental status/memory loss; Additional info: AMS TECHNIQUE: Imaging protocol: Computed tomography of the head without contrast. Radiation optimization: All CT scans at this facility use at least one of these dose optimization techniques: automated exposure control; mA and/or kV adjustment per patient size (includes targeted exams where dose is matched to clinical indication); or iterative reconstruction. COMPARISON: CT Head without contrast 10/10/2019 4:11 AM FINDINGS: Brain: Normal. No hemorrhage. Unremarkable white matter. No mass effect. Cerebral ventricles: No ventriculomegaly. Bones/joints: Unremarkable. No acute fracture. Paranasal sinuses: Polypoid mucosal disease involving the sphenoid sinus. Mastoid air cells: Visualized mastoid air cells are well aerated. Soft tissues: Unremarkable. IMPRESSION: No acute intracranial abnormality. Electronically signed by: Salo Banegas On 01/10/2021 23:35:25 PM
[2021-01-11 00:10] LABS: ACETAMINOPHEN LEVEL < 2.0 UG/ML (10.0-30.0); ALBUMIN 4.1 GM/DL (3.2-5.2); ALT/SGPT 56 U/L (12-78); BILIRUBIN,DIRECT 0.2 MG/DL (0.0-0.2); BILIRUBIN,TOTAL 0.5 MG/DL (0.2-1.0); BLOOD UREA NITROGEN 12 MG/DL (7-18); CALCIUM LEVEL 9.5 MG/DL (8.5-10.1); CARBON DIOXIDE LEVEL 29 MEQ/L (21-32); CHLORIDE LEVEL 105 MEQ/L (98-107); CK-MB VALUE MASS 8.5 NG/ML (<3.6); CPK CREATINE PHOSPHOKINASE 3715 U/L (39-308); CREATININE FOR GFR 1.05 MG/DL (0.70-1.30); ETHYL ALCOHOL (ETHANOL) < 0.003 % (0.000-0.010); GLOMERULAR FILTRATION RATE > 60.0 (>60); GLUCOSE, FASTING 60 MG/DL (70-100); MB/CK RELATIVE INDEX 0.23 (< OR =4); SALICYLATE LEVEL < 1.7 MG/DL (5.0-30.0); SODIUM LEVEL 141 MEQ/L (136-145); TROPONIN I < 0.02 NG/ML (< 0.10)
[2021-01-11] MEDS ORDERED: LORazepam 2 MG/ML VIAL IV STA ×2 (00:23→00:45)
[2021-01-11 06:40] VITALS: BP 110/73
[2021-01-11 07:24] LABS: AMPHETAMINES LEVEL URINE NEGATIVE (NEGATIVE); BARBITURATES URINE NEGATIVE (NEGATIVE); BENZODIAZEPINES URINE POSITIVE (NEGATIVE); CANNABINOIDS URINE NEGATIVE (NEGATIVE); COCAINE METABOLITE URINE NEGATIVE (NEGATIVE); METHADONE URINE POSITIVE (NEGATIVE); OPIATES URINE NEGATIVE (NEGATIVE); PHENCYCLIDINE URINE NEGATIVE (NEGATIVE)
--- NOTE | 2021-01-11 17:35 | ECGEPIP ---
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
== END 2021-01-11 06:40 | disposition home or self-care (01) ==
LOC: M ED 22:50
DX: R41.82 Altered mental status, unspecified (principal); M62.82 Rhabdomyolysis; Z86.19 Personal history of other infectious and parasitic diseases; B20 Human immunodeficiency virus [HIV] disease; F17.200 Nicotine dependence, unspecified, uncomplicated; F19.10 Other psychoactive substance abuse, uncomplicated; Z79.899 Other long term (current) drug therapy
CPT/HCPCS: 70450; 80048; 80076; 80143; 80307; 82077; 82550; 82553; 84443; 85027; 93005; 96361; 96374; 96375; 99285; J2060; J2310

== ENCOUNTER → 2021-07-12 | Outpatient (CLI) | payer OTHER ==
[~2021-07-12] MED LIST changes: +GABA-283 PO; -GABA-845 PO; +METH-1177 PO; -METH10TA2 PO; +OMEP40CA4 PO; -OMEP40CA97 PO
[2021-07-12 14:07] LABS: ALBUMIN 4.2 GM/DL (3.2-5.2); ALT/SGPT 34 U/L (12-78); BILIRUBIN,TOTAL 0.5 MG/DL (0.2-1.0); BLOOD UREA NITROGEN 11 MG/DL (7-18); CALCIUM LEVEL 9.2 MG/DL (8.5-10.1); CARBON DIOXIDE LEVEL 31 MEQ/L (21-32); CHLORIDE LEVEL 106 MEQ/L (98-107); CHOLESTEROL LEVEL 202 MG/DL (<200); CHOLESTEROL RISK RATIO 3.366 (<5); CREATININE FOR GFR 1.08 MG/DL (0.70-1.30); GLOMERULAR FILTRATION RATE > 60.0 (>60); GLUCOSE, FASTING 90 MG/DL (70-100); HDL CHOLESTEROL 60 MG/DL (>40); LDL CHOLESTEROL 123 MG/DL (<100); NON-HDL-C 142 MG/DL; POTASSIUM SERUM 4.1 MEQ/L (3.5-5.1); SODIUM LEVEL 141 MEQ/L (136-145); TOTAL PROTEIN 7.5 GM/DL (6.4-8.2); TRIGLYCERIDES LEVEL 93 MG/DL (<150)
== END ==
LOC: M LAB 12:39
PROVIDERS: ATTEND Nurse Practitioner Family
DX: Z00.00 Encounter for general adult medical examination without abnormal findings (principal)

== ENCOUNTER → 2021-12-21 | Outpatient (CLI) | payer OTHER ==
[2021-12-21 11:35] LABS: BASO % 0.4 % (0.0-1.0); EOS # 0.1 10^3/uL (0.0-0.5); EOS % 1.8 % (0.0-3.0); HEMATOCRIT 39.3 % (42.0-52.0); HEMOGLOBIN 13.1 g/dl (13.5-17.5); LYMPH # 2.9 10^3/uL (1.5-5.0); LYMPH % 37.5 % (24.0-44.0); MEAN CORPUSCULAR HEMOGLOBIN 29.4 pg (27.0-33.0); MEAN CORPUSCULAR HGB CONC 33.3 g/dl (32.0-36.5); MEAN CORPUSCULAR VOLUME 88.1 fl (80.0-96.0); MONO # 0.6 10^3/uL (0.0-0.8); MONO % 7.7 % (2.0-8.0); NEUTROPHILS % 51.9 % (36.0-66.0); PLATELET COUNT, AUTOMATED 334 10^3/uL (150-450); RED BLOOD COUNT 4.46 10^6/uL (4.30-6.10); WHITE BLOOD COUNT 7.7 10^3/uL (4.0-10.0)
[2021-12-21 12:15] LABS: ALBUMIN 3.7 GM/DL (3.2-5.2); ALT/SGPT 25 U/L (12-78); BILIRUBIN,DIRECT < 0.1 MG/DL (0.0-0.2); BILIRUBIN,TOTAL 0.2 MG/DL (0.2-1.0); BLOOD UREA NITROGEN 18 MG/DL (7-18); CALCIUM LEVEL 8.8 MG/DL (8.5-10.1); CARBON DIOXIDE LEVEL 26 MEQ/L (21-32); CHLORIDE LEVEL 106 MEQ/L (98-107); CHOLESTEROL LEVEL 199 MG/DL (<200); CHOLESTEROL RISK RATIO 5.378 (<5); CREATININE FOR GFR 0.95 MG/DL (0.70-1.30); GLOMERULAR FILTRATION RATE > 60.0 (>60); GLUCOSE, FASTING 139 MG/DL (70-100); HDL CHOLESTEROL 37 MG/DL (>40); HEPATITIS B CORE ANTIBODY IGM NEGATIVE (NEGATIVE); HEPATITIS B SURFACE ANTIBODY POSITIVE (POSITIVE); HEPATITIS B SURFACE ANTIGEN NEGATIVE (NEGATIVE); LDL CHOLESTEROL 108 MG/DL (<100); NON-HDL-C 162 MG/DL; POTASSIUM SERUM 3.8 MEQ/L (3.5-5.1); SODIUM LEVEL 140 MEQ/L (136-145); TOTAL PROTEIN 6.9 GM/DL (6.4-8.2); TRIGLYCERIDES LEVEL 268 MG/DL (<150)
[2021-12-21 13:23] LABS: HEPATITIS C VIRUS ABY INDEX > 11.0 INDEX (<0.8)
[2021-12-22 08:09] LABS: LDL DIRECT 118 mg/dL (0-99)
== END ==
LOC: M PLALAB 07:16
PROVIDERS: ATTEND Dermatology
DX: L40.0 Psoriasis vulgaris (principal)

== ENCOUNTER → 2022-01-27 | Outpatient (CLI) | payer OTHER ==
[2022-01-27 15:07] LABS: HEMATOCRIT 40.6 % (42.0-52.0); HEMOGLOBIN 13.9 g/dl (13.5-17.5); MEAN CORPUSCULAR HEMOGLOBIN 29.4 pg (27.0-33.0); MEAN CORPUSCULAR HGB CONC 34.2 g/dl (32.0-36.5); PLATELET COUNT, AUTOMATED 382 10^3/uL (150-450); RED BLOOD COUNT 4.72 10^6/uL (4.30-6.10); WHITE BLOOD COUNT 6.7 10^3/uL (4.0-10.0)
[2022-01-27 15:35] LABS: ALBUMIN 3.8 GM/DL (3.2-5.2); ALT/SGPT 32 U/L (12-78); BILIRUBIN,TOTAL 0.8 MG/DL (0.2-1.0); BLOOD UREA NITROGEN 11 MG/DL (7-18); CALCIUM LEVEL 9.4 MG/DL (8.5-10.1); CARBON DIOXIDE LEVEL 29 MEQ/L (21-32); CHLORIDE LEVEL 106 MEQ/L (98-107); CREATININE FOR GFR 0.97 MG/DL (0.70-1.30); GLOMERULAR FILTRATION RATE > 60.0 (>60); GLUCOSE, FASTING 83 MG/DL (70-100); POTASSIUM SERUM 4.1 MEQ/L (3.5-5.1); SODIUM LEVEL 140 MEQ/L (136-145); TOTAL PROTEIN 7.3 GM/DL (6.4-8.2)
[2022-01-27 15:53] LABS: HEPATITIS B SURFACE ANTIGEN NEGATIVE (NEGATIVE)
[2022-01-27 16:21] LABS: HIV 1&2 SCREEN CENTAUR NEGATIVE (NEGATIVE)
[2022-01-27 16:32] LABS: HEPATITIS C VIRUS ABY INDEX > 11.0 INDEX (<0.8)
[2022-01-27 17:00] LABS: GC DNA AMPLIFICATION NEGATIVE (NEGATIVE)
== END ==
LOC: M EKG 13:56
PROVIDERS: ATTEND Family Medicine
DX: F11.20 Opioid dependence, uncomplicated (principal)

== ENCOUNTER 2022-07-08 18:31 | Emergency (ER) | payer OTHER ==
[2022-07-08 19:23] VITALS: BP 161/101
[2022-07-08 19:30] LABS: BASO % 0.5 % (0.0-1.0); EOS # 0.2 10^3/uL (0.0-0.5); EOS % 3.1 % (0.0-3.0); HEMATOCRIT 35.3 % (42.0-52.0); HEMOGLOBIN 12.3 g/dl (13.5-17.5); LYMPH # 2.3 10^3/uL (1.5-5.0); LYMPH % 35.4 % (24.0-44.0); MEAN CORPUSCULAR HEMOGLOBIN 29.1 pg (27.0-33.0); MEAN CORPUSCULAR HGB CONC 34.8 g/dl (32.0-36.5); MEAN CORPUSCULAR VOLUME 83.6 fl (80.0-96.0); MONO # 0.9 10^3/uL (0.0-0.8); MONO % 13.5 % (2.0-8.0); NEUTROPHILS # 3.1 10^3/uL (1.5-8.5); NEUTROPHILS % 47.3 % (36.0-66.0); PLATELET COUNT, AUTOMATED 301 10^3/uL (150-450); RED BLOOD COUNT 4.22 10^6/uL (4.30-6.10); WHITE BLOOD COUNT 6.5 10^3/uL (4.0-10.0)
[2022-07-08 20:02] LABS: AMPHETAMINES LEVEL URINE NEGATIVE (NEGATIVE); BARBITURATES URINE NEGATIVE (NEGATIVE); BENZODIAZEPINES URINE NEGATIVE (NEGATIVE); CANNABINOIDS URINE NEGATIVE (NEGATIVE); COCAINE METABOLITE URINE NEGATIVE (NEGATIVE); METHADONE URINE POSITIVE (NEGATIVE); OPIATES URINE NEGATIVE (NEGATIVE); PHENCYCLIDINE URINE NEGATIVE (NEGATIVE)
[2022-07-08 20:17] LABS: ACETAMINOPHEN LEVEL < 2.0 UG/ML (10.0-30.0); ALBUMIN 3.9 GM/DL (3.2-5.2); ALT/SGPT 27 U/L (12-78); BILIRUBIN,DIRECT < 0.1 MG/DL (0.0-0.2); BILIRUBIN,TOTAL 0.2 MG/DL (0.2-1.0); BLOOD UREA NITROGEN 12 MG/DL (7-18); CALCIUM LEVEL 9.4 MG/DL (8.5-10.1); CARBON DIOXIDE LEVEL 28 MEQ/L (21-32); CHLORIDE LEVEL 102 MEQ/L (98-107); CREATININE FOR GFR 0.97 MG/DL (0.70-1.30); ETHYL ALCOHOL (ETHANOL) 0.004 % (0.000-0.010); GLOMERULAR FILTRATION RATE > 60.0 (>60); GLUCOSE, FASTING 110 MG/DL (70-100); POTASSIUM SERUM 3.8 MEQ/L (3.5-5.1); SALICYLATE LEVEL < 1.7 MG/DL (5.0-30.0); SODIUM LEVEL 134 MEQ/L (136-145); TOTAL PROTEIN 7.6 GM/DL (6.4-8.2)
== END 2022-07-08 19:59 | disposition left against medical advice (07) ==
LOC: EDBD 18:31 → M ED 18:31
DX: Z04.1 Encounter for examination and observation following transport accident (principal); R41.0 Disorientation, unspecified; Z53.9 Procedure and treatment not carried out, unspecified reason; Z79.899 Other long term (current) drug therapy

== ENCOUNTER 2022-09-08 23:03 | Emergency (ER) | payer OTHER ==
[~2022-09-08] VITALS: Ht 175.3 cm; Wt 84.1 kg
[~2022-09-08 23:03] MED LIST changes: +BACTDSTA PO; +GABA-282 PO; +GABA600T4 PO; +MED REC COMMENT; +METH-444 PO; +METH10CO PO; +METH5TAB76 PO; +MUPI2OI TOP; +QUET300T93 PO; +TALT80IN7 INJ
[2022-09-08] MEDS ORDERED: NS 1,000 ML IV ONE (23:15)
[2022-09-09 00:20] LABS: ACETAMINOPHEN LEVEL < 2.0 UG/ML (10.0-20.0); ALBUMIN 4.6 G/DL (3.2-5.2); ALT/SGPT 83 U/L (7.0-40); BASO % 0.5 % (0.0-1.0); BILIRUBIN,DIRECT 0.2 MG/DL (<0.4); BILIRUBIN,TOTAL 0.7 MG/DL (0.3-1.2); BLOOD UREA NITROGEN 20 MG/DL (9-23); CALCIUM LEVEL 9.8 MG/DL (8.5-10.1); CARBON DIOXIDE LEVEL 24 MMOL/L (20-31); CHLORIDE LEVEL 104 MMOL/L (98-107); CREATININE FOR GFR 0.96 MG/DL (0.70-1.30); EOS # 0.1 10^3/uL (0.0-0.5); EOS % 1.1 % (0.0-3.0); ETHYL ALCOHOL (ETHANOL) 0.003 % (0.000-0.010); GLOMERULAR FILTRATION RATE > 60.0 (>60); GLUCOSE, FASTING 78 MG/DL (60-100); HEMATOCRIT 37.8 % (42.0-52.0); HEMOGLOBIN 12.5 g/dl (13.5-17.5); LYMPH # 2.2 10^3/uL (1.5-5.0); LYMPH % 27.2 % (24.0-44.0); MEAN CORPUSCULAR HEMOGLOBIN 28.8 pg (27.0-33.0); MEAN CORPUSCULAR HGB CONC 33.1 g/dl (32.0-36.5); MEAN CORPUSCULAR VOLUME 87.1 fl (80.0-96.0); MONO # 0.8 10^3/uL (0.0-0.8); MONO % 10.6 % (2.0-8.0); NEUTROPHILS # 4.8 10^3/uL (1.5-8.5); NEUTROPHILS % 60.3 % (36.0-66.0); PLATELET COUNT, AUTOMATED 324 10^3/uL (150-450); POTASSIUM SERUM 5.6 MMOL/L (3.5-5.1); RED BLOOD COUNT 4.34 10^6/uL (4.30-6.10); SALICYLATE LEVEL < 3.0 MG/DL (<30); SODIUM LEVEL 139 MMOL/L (136-145); THYROID STIMULATING HORMONE 3.114 uIU/ML (0.55-4.78); TOTAL PROTEIN 8.1 G/DL (5.7-8.2)
[2022-09-09 02:17] LABS: AMPHETAMINES LEVEL URINE NEGATIVE (NEGATIVE); BARBITURATES URINE NEGATIVE (NEGATIVE); BENZODIAZEPINES URINE POSITIVE (NEGATIVE); CANNABINOIDS URINE POSITIVE (NEGATIVE); COCAINE METABOLITE URINE NEGATIVE (NEGATIVE); METHADONE URINE POSITIVE (NEGATIVE); OPIATES URINE NEGATIVE (NEGATIVE); PHENCYCLIDINE URINE NEGATIVE (NEGATIVE)
[2022-09-09 05:00] VITALS: BP 121/77
== END 2022-09-09 05:47 | disposition home or self-care (01) ==
LOC: M ED 23:03
DX: F19.10 Other psychoactive substance abuse, uncomplicated (principal); Z79.899 Other long term (current) drug therapy

== ENCOUNTER → 2023-01-31 | Outpatient (REF) | payer OTHER ==
[2023-01-31 17:30] LABS: BASO % 0.4 % (0.0-1.0); EOS # 0.2 10^3/uL (0.0-0.5); EOS % 2.2 % (0.0-3.0); HEMATOCRIT 35.7 % (42.0-52.0); HEMOGLOBIN 11.6 g/dl (13.5-17.5); LYMPH # 2.5 10^3/uL (1.5-5.0); LYMPH % 37.4 % (24.0-44.0); MEAN CORPUSCULAR HEMOGLOBIN 28.7 pg (27.0-33.0); MEAN CORPUSCULAR HGB CONC 32.5 g/dl (32.0-36.5); MEAN CORPUSCULAR VOLUME 88.4 fl (80.0-96.0); MONO # 0.6 10^3/uL (0.0-0.8); MONO % 9.1 % (2.0-8.0); NEUTROPHILS # 3.5 10^3/uL (1.5-8.5); NEUTROPHILS % 50.8 % (36.0-66.0); PLATELET COUNT, AUTOMATED 303 10^3/uL (150-450); RED BLOOD COUNT 4.04 10^6/uL (4.30-6.10); WHITE BLOOD COUNT 6.8 10^3/uL (4.0-10.0)
[2023-01-31 17:33] LABS: HEMOGLOBIN A1c 5.1 % (4.0-6.0)
[2023-01-31 17:37] LABS: ALBUMIN 3.8 G/DL (3.2-5.2); ALKALINE PHOSPHATASE 105 U/L (46-116); ALT/SGPT 24 U/L (7.0-40); AST/SGOT 51 U/L (<34); BILIRUBIN,TOTAL 0.2 MG/DL (0.3-1.2); BLOOD UREA NITROGEN 9 MG/DL (9-23); CALCIUM LEVEL 9.2 MG/DL (8.5-10.1); CARBON DIOXIDE LEVEL 29 MMOL/L (20-31); CHLORIDE LEVEL 106 MMOL/L (98-107); CHOLESTEROL LEVEL 205 MG/DL (<200); CHOLESTEROL RISK RATIO 3.58 (<5); CREATININE FOR GFR 0.85 MG/DL (0.70-1.30); GLOMERULAR FILTRATION RATE > 60.0 (>60); GLUCOSE, FASTING 110 MG/DL (60-100); HDL CHOLESTEROL 57.2 MG/DL (>40); LDL CHOLESTEROL 127.4 MG/DL (<100); NON-HDL-C 147.8 MG/DL; POTASSIUM SERUM 3.5 MMOL/L (3.5-5.1); SODIUM LEVEL 142 MMOL/L (136-145); TRIGLYCERIDES LEVEL 102 MG/DL (<150)
[2023-01-31 17:43] LABS: TOTAL 25(OH) VITAMIN D 24.7 NG/ML (20.0-100.0)
[2023-01-31 18:06] LABS: HIV 1&2 SCREEN ATELLICA NEGATIVE (NEGATIVE)
[2023-01-31 18:18] LABS: HEPATITIS C VIRUS ABY INDEX > 11.0 INDEX (<0.8)
== END ==
LOC: M LAB REF 16:46
PROVIDERS: ATTEND Nurse Practitioner Family
DX: Z11.59 Encounter for screening for other viral diseases (principal); Z11.4 Encounter for screening for human immunodeficiency virus [HIV]; Z13.228 Encounter for screening for other metabolic disorders

== ENCOUNTER → 2023-02-13 | Outpatient (CLI) | payer OTHER ==
[2023-02-13 11:52] LABS: BASO % 0.6 % (0.0-1.0); EOS # 0.1 10^3/uL (0.0-0.5); EOS % 2.5 % (0.0-3.0); HEMATOCRIT 40.4 % (42.0-52.0); HEMOGLOBIN 13.2 g/dl (13.5-17.5); LYMPH # 1.7 10^3/uL (1.5-5.0); LYMPH % 36.3 % (24.0-44.0); MEAN CORPUSCULAR HEMOGLOBIN 29.2 pg (27.0-33.0); MEAN CORPUSCULAR HGB CONC 32.7 g/dl (32.0-36.5); MEAN CORPUSCULAR VOLUME 89.4 fl (80.0-96.0); MONO # 0.4 10^3/uL (0.0-0.8); MONO % 7.5 % (2.0-8.0); NEUTROPHILS # 2.5 10^3/uL (1.5-8.5); NEUTROPHILS % 52.9 % (36.0-66.0); PLATELET COUNT, AUTOMATED 320 10^3/uL (150-450); RED BLOOD COUNT 4.52 10^6/uL (4.30-6.10); WHITE BLOOD COUNT 4.8 10^3/uL (4.0-10.0)
[2023-02-13 12:21] LABS: ALBUMIN 3.8 G/DL (3.2-5.2); ALKALINE PHOSPHATASE 126 U/L (46-116); ALT/SGPT < 9 U/L (7.0-40); AST/SGOT 19 U/L (<34); BILIRUBIN,DIRECT < 0.1 MG/DL (<0.4); BILIRUBIN,TOTAL 0.3 MG/DL (0.3-1.2); BLOOD UREA NITROGEN 16 MG/DL (9-23); CALCIUM LEVEL 8.8 MG/DL (8.5-10.1); CARBON DIOXIDE LEVEL 28 MMOL/L (20-31); CHLORIDE LEVEL 105 MMOL/L (98-107); CHOLESTEROL LEVEL 189 MG/DL (<200); CHOLESTEROL RISK RATIO 3.62 (<5); GLOMERULAR FILTRATION RATE > 60.0 (>60); GLUCOSE, FASTING 106 MG/DL (60-100); HDL CHOLESTEROL 52.2 MG/DL (>40); LDL CHOLESTEROL 107.4 MG/DL (<100); NON-HDL-C 136.8 MG/DL; POTASSIUM SERUM 4.1 MMOL/L (3.5-5.1); SODIUM LEVEL 140 MMOL/L (136-145); TOTAL PROTEIN 7.3 G/DL (5.7-8.2); TRIGLYCERIDES LEVEL 147 MG/DL (<150)
[2023-02-13 12:25] LABS: HEPATITIS B SURFACE ANTIBODY POSITIVE (POSITIVE)
[2023-02-13 12:37] LABS: HEPATITIS B SURFACE ANTIGEN NEGATIVE (NEGATIVE)
[2023-02-13 13:36] LABS: HEPATITIS C VIRUS ABY INDEX > 11.0 INDEX (<0.8)
== END ==
LOC: M PLALAB 09:22
PROVIDERS: ATTEND Dermatology
DX: L40.0 Psoriasis vulgaris (principal)

== ENCOUNTER 2023-04-29 21:35 | Emergency (ER) | payer OTHER ==
[~2023-04-29] VITALS: Ht 165.1 cm; Wt 80.7 kg
[2023-04-29 21:36] VITALS: BP 131/67; TEMP 98.5; O2SAT 96
== END 2023-04-29 22:48 | disposition left against medical advice (07) ==
LOC: M ED 21:35
DX: Z53.21 Procedure and treatment not carried out due to patient leaving prior to being seen by health care provider (principal)

== ENCOUNTER 2023-09-06 23:48 | Emergency (ER) | payer OTHER ==
[~2023-09-06] VITALS: Ht 167.6 cm; Wt 79.5 kg
[~2023-09-06 23:48] MED LIST changes: -AMIT25TA17 PO; +AMIT25TA19 PO; -GABA-283 PO; +GABA-284 PO
[2023-09-06 23:51] VITALS: BP 135/84; TEMP 98.2; O2SAT 100
== END 2023-09-07 02:17 | disposition left against medical advice (07) ==
LOC: M ED 23:48
DX: Z53.21 Procedure and treatment not carried out due to patient leaving prior to being seen by health care provider (principal)

== ENCOUNTER 2024-01-14 23:22 | Emergency (ER) | payer OTHER ==
[~2024-01-14] VITALS: Ht 170.2 cm; Wt 61.3 kg
[2024-01-14 23:47] VITALS: BP 148/90; TEMP 97.5; O2SAT 97
[2024-01-15 02:51] LABS: BASO % 0.4 % (0.0-1.0); EOS # 0.1 10^3/uL (0.0-0.5); HEMATOCRIT 39.2 % (42.0-52.0); HEMOGLOBIN 13.5 g/dl (13.5-17.5); LYMPH # 2.9 10^3/uL (1.5-5.0); LYMPH % 41.2 % (24.0-44.0); MEAN CORPUSCULAR HEMOGLOBIN 29.5 pg (27.0-33.0); MEAN CORPUSCULAR HGB CONC 34.4 g/dl (32.0-36.5); MEAN CORPUSCULAR VOLUME 85.6 fl (80.0-96.0); MONO # 0.5 10^3/uL (0.0-0.8); MONO % 7.4 % (2.0-8.0); NEUTROPHILS # 3.4 10^3/uL (1.5-8.5); NEUTROPHILS % 48.7 % (36.0-66.0); PLATELET COUNT, AUTOMATED 277 10^3/uL (150-450); RED BLOOD COUNT 4.58 10^6/uL (4.30-6.10)
[2024-01-15 04:36] LABS: CK-MB VALUE MASS < 1.0 NG/ML (<3.6)
[2024-01-15 04:37] LABS: LIPASE 30 U/L (12-53)
[2024-01-15 04:39] LABS: ALBUMIN 4.2 G/DL (3.2-5.2); ALKALINE PHOSPHATASE 86 U/L (46-116); ALT/SGPT 16 U/L (7.0-40); AST/SGOT 17 U/L (<34); BILIRUBIN,DIRECT < 0.1 MG/DL (<0.4); BILIRUBIN,TOTAL 0.3 MG/DL (0.3-1.2); BLOOD UREA NITROGEN 15 MG/DL (9-23); CARBON DIOXIDE LEVEL 27 MMOL/L (20-31); CHLORIDE LEVEL 106 MMOL/L (98-107); CREATININE FOR GFR 0.98 MG/DL (0.70-1.30); GLOMERULAR FILTRATION RATE > 60.0 (>60); GLUCOSE, FASTING 89 MG/DL (60-100); POTASSIUM SERUM 4.4 MMOL/L (3.5-5.1); SODIUM LEVEL 139 MMOL/L (136-145); TOTAL PROTEIN 7.3 G/DL (5.7-8.2)
[2024-01-15 04:43] LABS: CPK CREATINE PHOSPHOKINASE 119 U/L (46-171); MB/CK RELATIVE INDEX 0.84 (< OR =4)
[2024-01-15] MEDS ORDERED: ACETAMINOPHEN TAB 650MG DOSE (2X325MG) PO ONE (05:10)
== END 2024-01-15 07:37 | disposition home or self-care (01) ==
LOC: M ED 23:22
DX: R07.9 Chest pain, unspecified (principal); I45.81 Long QT syndrome; F32.A Depression, unspecified; F91.3 Oppositional defiant disorder; B19.20 Unspecified viral hepatitis C without hepatic coma; Z79.891 Long term (current) use of opiate analgesic; Z79.899 Other long term (current) drug therapy

== ENCOUNTER 2024-02-05 10:01 | Emergency (ER) | payer OTHER ==
[~2024-02-05] VITALS: Ht 167.6 cm; Wt 85.7 kg
[2024-02-05] MEDS ORDERED: EFFE37.52 PO (10:26)
[2024-02-05 15:22] VITALS: TEMP 98.4; O2SAT 99
[2024-02-05 15:32] VITALS: BP 152/90
== END 2024-02-05 16:50 | disposition left against medical advice (07) ==
LOC: M ED 10:01
DX: I10 Essential (primary) hypertension (principal); Z53.9 Procedure and treatment not carried out, unspecified reason; Z86.19 Personal history of other infectious and parasitic diseases; F19.10 Other psychoactive substance abuse, uncomplicated; Z79.899 Other long term (current) drug therapy

== ENCOUNTER 2024-02-06 11:15 | Emergency (ER) | payer OTHER ==
[~2024-02-06] VITALS: Ht 167.6 cm; Wt 85.2 kg
[~2024-02-06 11:15] MED LIST changes: +EFFE37.52 PO
[2024-02-06 11:16] VITALS: BP 139/81; TEMP 98.3; O2SAT 96
== END 2024-02-06 11:33 | disposition left against medical advice (07) ==
LOC: M ED 11:15
DX: Z53.21 Procedure and treatment not carried out due to patient leaving prior to being seen by health care provider (principal)

== ENCOUNTER → 2024-02-23 | Outpatient (CLI) | payer OTHER ==
[2024-02-23 16:32] LABS: BASO % 0.4 % (0.0-1.0); EOS # 0.1 10^3/uL (0.0-0.5); EOS % 1.1 % (0.0-3.0); HEMATOCRIT 40.1 % (42.0-52.0); HEMOGLOBIN 13.3 g/dl (13.5-17.5); LYMPH # 2.6 10^3/uL (1.5-5.0); LYMPH % 35.2 % (24.0-44.0); MEAN CORPUSCULAR HEMOGLOBIN 29.5 pg (27.0-33.0); MEAN CORPUSCULAR HGB CONC 33.2 g/dl (32.0-36.5); MEAN CORPUSCULAR VOLUME 88.9 fl (80.0-96.0); MONO # 0.6 10^3/uL (0.0-0.8); MONO % 8.2 % (2.0-8.0); NEUTROPHILS % 54.8 % (36.0-66.0); PLATELET COUNT, AUTOMATED 552 10^3/uL (150-450); RED BLOOD COUNT 4.51 10^6/uL (4.30-6.10); WHITE BLOOD COUNT 7.3 10^3/uL (4.0-10.0)
[2024-02-23 17:02] LABS: ALBUMIN 3.8 G/DL (3.2-5.2); ALKALINE PHOSPHATASE 103 U/L (46-116); ALT/SGPT 58 U/L (7.0-40); AST/SGOT 37 U/L (<34); BILIRUBIN,DIRECT 0.1 MG/DL (<0.4); BILIRUBIN,TOTAL 0.3 MG/DL (0.3-1.2); BLOOD UREA NITROGEN 10 MG/DL (9-23); CALCIUM LEVEL 9.3 MG/DL (8.5-10.1); CARBON DIOXIDE LEVEL 28 MMOL/L (20-31); CHLORIDE LEVEL 106 MMOL/L (98-107); CHOLESTEROL LEVEL 205 MG/DL (<200); CHOLESTEROL RISK RATIO 4.53 (<5); GLOMERULAR FILTRATION RATE > 60.0 (>60); GLUCOSE, FASTING 101 MG/DL (60-100); HDL CHOLESTEROL 45.2 MG/DL (>40); LDL CHOLESTEROL 132.4 MG/DL (<100); NON-HDL-C 159.8 MG/DL; POTASSIUM SERUM 4.5 MMOL/L (3.5-5.1); SODIUM LEVEL 143 MMOL/L (136-145); TOTAL PROTEIN 7.6 G/DL (5.7-8.2); TRIGLYCERIDES LEVEL 137 MG/DL (<150)
[2024-02-23 17:05] LABS: HEPATITIS B SURFACE ANTIBODY POSITIVE (POSITIVE)
[2024-02-23 17:17] LABS: HEPATITIS B SURFACE ANTIGEN NEGATIVE (NEGATIVE)
[2024-02-23 17:43] LABS: HEPATITIS C VIRUS ABY INDEX > 11.00 INDEX (<0.8)
[2024-02-26 16:08] LABS: HEPATITIS B CORE ANTIBODY IGG Negative (Negative)
== END ==
LOC: M PLALAB 13:45
PROVIDERS: ATTEND Dermatology
DX: L40.0 Psoriasis vulgaris (principal)

== ENCOUNTER → 2024-02-23 | Outpatient (CLI) | payer OTHER ==
[2024-02-23 16:32] LABS: BASO % 0.4 % (0.0-1.0); EOS # 0.1 10^3/uL (0.0-0.5); EOS % 1.1 % (0.0-3.0); HEMATOCRIT 41.5 % (42.0-52.0); HEMOGLOBIN 13.5 g/dl (13.5-17.5); LYMPH # 2.4 10^3/uL (1.5-5.0); LYMPH % 33.4 % (24.0-44.0); MEAN CORPUSCULAR HGB CONC 32.5 g/dl (32.0-36.5); MEAN CORPUSCULAR VOLUME 89.1 fl (80.0-96.0); MONO # 0.6 10^3/uL (0.0-0.8); MONO % 8.5 % (2.0-8.0); NEUTROPHILS % 56.2 % (36.0-66.0); PLATELET COUNT, AUTOMATED 541 10^3/uL (150-450); RED BLOOD COUNT 4.66 10^6/uL (4.30-6.10); WHITE BLOOD COUNT 7.2 10^3/uL (4.0-10.0)
[2024-02-23 17:02] LABS: ALBUMIN 4.2 G/DL (3.2-5.2); ALKALINE PHOSPHATASE 108 U/L (46-116); ALT/SGPT 59 U/L (7.0-40); AST/SGOT 38 U/L (<34); BILIRUBIN,TOTAL 0.3 MG/DL (0.3-1.2); BLOOD UREA NITROGEN 10 MG/DL (9-23); CALCIUM LEVEL 9.3 MG/DL (8.5-10.1); CARBON DIOXIDE LEVEL 29 MMOL/L (20-31); CHLORIDE LEVEL 105 MMOL/L (98-107); CHOLESTEROL LEVEL 206 MG/DL (<200); CHOLESTEROL RISK RATIO 4.61 (<5); CREATININE FOR GFR 0.81 MG/DL (0.70-1.30); GLOMERULAR FILTRATION RATE > 60.0 (>60); GLUCOSE, FASTING 99 MG/DL (60-100); HDL CHOLESTEROL 44.6 MG/DL (>40); LDL CHOLESTEROL 135.8 MG/DL (<100); NON-HDL-C 161.4 MG/DL; POTASSIUM SERUM 4.3 MMOL/L (3.5-5.1); SODIUM LEVEL 142 MMOL/L (136-145); TOTAL PROTEIN 7.7 G/DL (5.7-8.2); TRIGLYCERIDES LEVEL 128 MG/DL (<150)
[2024-02-23 17:05] LABS: HEMOGLOBIN A1c 4.7 % (4.0-6.0); THYROID STIMULATING HORMONE 1.086 uIU/ML (0.55-4.78)
== END ==
LOC: M PLALAB 13:43
PROVIDERS: ATTEND Nurse Practitioner Family
DX: E66.3 Overweight (principal)

== ENCOUNTER → 2024-10-04 | Outpatient (CLI) | payer OTHER ==
[~2024-10-04] MED LIST changes: +GABA-1172; +GABA-1172 PO; +GABA-1490 PO; -GABA-282; -GABA-282 PO; -GABA600T4 PO
[2024-10-08 14:18] LABS: QuantiFERON-TB Gold Plus NEGATIVE (NEGATIVE)
== END ==
LOC: M LAB 08:41
PROVIDERS: ATTEND Dermatology
DX: L40.0 Psoriasis vulgaris (principal)

== ENCOUNTER 2025-01-10 22:49 | Inpatient (IN) | payer BC, MEDICAID, OTHER, SELFPAY ==
[~2025-01-10] VITALS: Ht 167.6 cm; Wt 76.9 kg
[2025-01-11 00:02] LABS: HEMATOCRIT 44.2 % (42.0-52.0); HEMOGLOBIN 15.6 g/dl (13.5-17.5); MEAN CORPUSCULAR HEMOGLOBIN 30.5 pg (27.0-33.0); MEAN CORPUSCULAR HGB CONC 35.3 g/dl (32.0-36.5); MEAN CORPUSCULAR VOLUME 86.5 fl (80.0-96.0); PLATELET COUNT, AUTOMATED 360 10^3/uL (150-450); RED BLOOD COUNT 5.11 10^6/uL (4.30-6.10); WHITE BLOOD COUNT 12.2 10^3/uL (4.0-10.0)
[2025-01-11 00:33] LABS: BARBITURATES URINE NEGATIVE (NEGATIVE); CANNABINOIDS URINE NEGATIVE (NEGATIVE); COCAINE METABOLITE URINE NEGATIVE (NEGATIVE); METHADONE URINE NEGATIVE (NEGATIVE); OPIATES URINE NEGATIVE (NEGATIVE); PHENCYCLIDINE URINE NEGATIVE (NEGATIVE)
[2025-01-11 00:34] LABS: AMPHETAMINES LEVEL URINE POSITIVE (NEGATIVE); BENZODIAZEPINES URINE POSITIVE (NEGATIVE)
[2025-01-11 00:35] LABS: ETHYL ALCOHOL (ETHANOL) < 0.003 % (0.000-0.010)
[2025-01-11 00:36] LABS: SALICYLATE LEVEL < 3.0 MG/DL (<30)
[2025-01-11 00:37] LABS: ALBUMIN 5.2 G/DL (3.2-5.2); ALKALINE PHOSPHATASE 126 U/L (40-129); ALT/SGPT 32 U/L (7.0-40); AST/SGOT 39 U/L (<34); BILIRUBIN,DIRECT 0.4 MG/DL (<0.4); BILIRUBIN,TOTAL 1.2 MG/DL (0.3-1.2); BLOOD UREA NITROGEN 19 MG/DL (9-23); CALCIUM LEVEL 11.2 MG/DL (8.5-10.1); CARBON DIOXIDE LEVEL 28 MMOL/L (20-31); CHLORIDE LEVEL 99 MMOL/L (98-107); CREATININE FOR GFR 1.07 MG/DL (0.70-1.30); GLOMERULAR FILTRATION RATE > 60.0 (>60); GLUCOSE, FASTING 98 MG/DL (60-100); POTASSIUM SERUM 3.4 MMOL/L (3.5-5.1); SODIUM LEVEL 142 MMOL/L (136-145); TOTAL PROTEIN 9.2 G/DL (5.7-8.2)
[2025-01-11 00:38] LABS: THYROID STIMULATING HORMONE 2.049 uIU/ML (0.55-4.78)
[2025-01-11] MEDS ORDERED: BUPR8SUB SL (00:38)
[2025-01-11] MEDS ORDERED: HYDR-3490 PO (00:38)
[2025-01-11] MEDS ORDERED: QUET200T2 PO (00:38)
[2025-01-11] MEDS: OLANZapine ORAL DISINTEGRATING TAB 5MG PO ONE (00:50)
[2025-01-11] MEDS ORDERED: HOME MED LIST COMPLETE! XX SCH (06:00)
[2025-01-11] MEDS ORDERED: BUPRENORPHINE/NALOXONE 8-2MG SUBLINGUAL TABLET(SUBOXONE) SL SCH (09:00)
[2025-01-11] MEDS: BUPRENORPHINE HCL 8MG SUBINGUAL TABLET SL SCH ×2 (09:00→22:07)
[2025-01-11] MEDS: QUEtiapine FUMARATE 200 MG TAB PO SCH (09:00)
[2025-01-11] MEDS: NICOTINE 14 MG/24 HR TRANSDERMAL TD SCH (09:00)
[2025-01-11] MEDS ORDERED: OLANZapine 5 MG TAB PO PRN (11:20)
[2025-01-11] MEDS ORDERED: MOM 30ML SUSPENSION UDC PO PRN (11:20)
[2025-01-11] MEDS ORDERED: diphenhydrAMINE 25MG CAP PO PRN (11:20)
[2025-01-11] MEDS ORDERED: MAALOX 30 ML SUSP *UDC PO PRN (11:20)
[2025-01-11 15:40] VITALS: BP 132/73; TEMP 97; O2SAT 100
[2025-01-11] MEDS: ACETAMINOPHEN 325 MG TAB PO PRN (22:06)
[2025-01-11] MEDS: LORazepam 1 MG TAB PO PRN (22:06)
[2025-01-11] MEDS: traZODone 50 MG TAB PO PRN (22:07)
[2025-01-12 06:54] VITALS: BP 103/62; TEMP 98; O2SAT 97
[2025-01-12 15:18] VITALS: BP 132/84; TEMP 97.6; O2SAT 96
[2025-01-12] MEDS: QUEtiapine FUMARATE 200 MG TAB PO SCH (20:30)
[2025-01-13 06:44] VITALS: BP 135/70; TEMP 97.8; O2SAT 99
[2025-01-13] MEDS: CLOBETASOL PROPIONATE EMOLLIENT 0.05% CR 60 GM TOP PRN (11:38)
[2025-01-13 16:05] VITALS: BP 135/91; TEMP 98.1; O2SAT 95
[2025-01-14 06:27] VITALS: BP 117/68; TEMP 97.7; O2SAT 96
[2025-01-14] MEDS ORDERED: QUET200T2 PO (12:32)
[2025-01-14] MEDS ORDERED: TRAZ-252 PO (12:32)
== END 2025-01-14 13:55 | disposition home or self-care (01) | DRG 753 ==
LOC: M ED 22:49 → EEVIPCON 01-11 11:19 → M ED INP 01-11 11:19 → M PSY 01-11 15:14
PROVIDERS: ADMIT Internal Medicine; ATTEND Internal Medicine
DX: F31.63 Bipolar disorder, current episode mixed, severe, without psychotic features (principal); F15.259 Other stimulant dependence with stimulant-induced psychotic disorder, unspecified; F10.20 Alcohol dependence, uncomplicated; F11.20 Opioid dependence, uncomplicated; F41.9 Anxiety disorder, unspecified; I10 Essential (primary) hypertension; L40.50 Arthropathic psoriasis, unspecified; F17.290 Nicotine dependence, other tobacco product, uncomplicated; E87.6 Hypokalemia; Z79.899 Other long term (current) drug therapy; E83.52 Hypercalcemia

== ENCOUNTER → 2025-06-04 | Outpatient (CLI) | payer MEDICAID, OTHER ==
[~2025-06-04] MED LIST changes: +BUPR8SUB SL; +HYDR-3490 PO; +QUET200T2 PO
[2025-06-04 15:19] LABS: BASO # 0.1 10^3/uL (0.0-0.2); BASO % 0.9 % (0.0-1.0); EOS # 0.1 10^3/uL (0.0-0.5); EOS % 1.9 % (0.0-3.0); LYMPH # 2.3 10^3/uL (1.5-5.0); LYMPH % 33.7 % (24.0-44.0); MONO # 0.8 10^3/uL (0.0-0.8); MONO % 11.0 % (2.0-8.0); NEUTROPHILS # 3.6 10^3/uL (1.5-8.5); NEUTROPHILS % 52.2 % (36.0-66.0); PLATELET COUNT, AUTOMATED 298 10^3/uL (150-450)
[2025-06-04 15:27] LABS: ALT/SGPT 46 U/L (7.0-40); AST/SGOT 43 U/L (<34); CALCIUM LEVEL 9.3 MG/DL (8.5-10.1); CARBON DIOXIDE LEVEL 29 MMOL/L (20-31); CHLORIDE LEVEL 99 MMOL/L (98-107); CHOLESTEROL LEVEL 240 MG/DL (<200); CHOLESTEROL RISK RATIO 4.97 (<5); CREATININE FOR GFR 1.11 MG/DL (0.70-1.30); GLOMERULAR FILTRATION RATE 87.7 (>60); NON-HDL-C 191.8 MG/DL; POTASSIUM SERUM 3.7 MMOL/L (3.5-5.1); SODIUM LEVEL 140 MMOL/L (136-145); TRIGLYCERIDES LEVEL 418 MG/DL (<150)
[2025-06-04 15:29] LABS: TOTAL 25(OH) VITAMIN D 30.6 NG/ML (20.0-100.0)
[2025-06-04 15:46] LABS: ESTIMATED AVERAGE GLUCOSE 94.0 MG/DL (60-110)
== END ==
LOC: M PLALAB 13:42
PROVIDERS: ATTEND Registered Nurse Psychiatric/Mental Health
DX: Z51.81 Encounter for therapeutic drug level monitoring (principal); Z79.899 Other long term (current) drug therapy

== ENCOUNTER 2025-06-24 04:14 | Emergency (ER) | payer OTHER ==
[~2025-06-24] VITALS: Ht 167.6 cm; Wt 79.5 kg
[2025-06-24 04:17] VITALS: BP 147/87; TEMP 100.3; O2SAT 96
== END 2025-06-24 05:59 | disposition left against medical advice (07) ==
LOC: M ED 04:14
DX: Z53.21 Procedure and treatment not carried out due to patient leaving prior to being seen by health care provider (principal)

== ENCOUNTER → 2025-09-29 | Outpatient (CLI) | payer OTHER ==
[~2025-09-29] MED LIST changes: -BACTDSTA PO; +SULF-8 PO
[2025-09-29 17:53] LABS: ALT/SGPT 58 U/L (7.0-40); AST/SGOT 50 U/L (<34); CALCIUM LEVEL 9.4 MG/DL (8.5-10.1); CARBON DIOXIDE LEVEL 25 MMOL/L (20-31); CHLORIDE LEVEL 103 MMOL/L (98-107); CREATININE FOR GFR 0.88 MG/DL (0.70-1.30); GLOMERULAR FILTRATION RATE > 90.0 (>60); POTASSIUM SERUM 3.9 MMOL/L (3.5-5.1); SODIUM LEVEL 136 MMOL/L (136-145)
== END ==
LOC: M LAB 15:45
PROVIDERS: ATTEND Internal Medicine Cardiovascular Disease
DX: I1A.0 Resistant hypertension (principal)